=== PATIENT | male | born 1950 | race Caucasian/White ===

== ENCOUNTER 2020-11-18 16:24 | Inpatient (IN) ==
[2020-11-18] MEDS ORDERED: Heparin IV Adult Wt-Based Low-Dose WITH Bolus Protocol IV STA (16:36)
[2020-11-18] MEDS ORDERED: NITROGLYCERIN SL 0.4 MG/TAB TAB SL PRN (16:36)
[2020-11-18] MEDS ORDERED: METOPROLOL TARTRATE 1 MG/ML VIAL IV STA (16:36)
[2020-11-18 16:48] LABS: Basophils # (auto) 0.01 K/uL (0-0.2); Basophils % (auto) 0.1 %; Eosinophils # (auto) 0.04 K/uL (0-0.5); Eosinophils % (auto) 0.5 %; Hematocrit (blood only) 48.3 % (42-52); Hemoglobin 16.2 g/dL (14.0-18.0); Immature Granulocytes # (auto) 0.02 K/uL (0.00-0.02); Immature Granulocytes % (auto) 0.2 %; Lymphocytes # (auto) 1.16 K/uL (1.2-3.4); Lymphocytes % (auto) 13.9 %; Mean Corpuscular Hemoglobin 29.6 pg (25-34); Mean Corpuscular Hgb Conc 33.5 g/dL (32-36); Mean Corpuscular Volume 88.1 fL (80-100); Mean Platelet Volume 9.4 fL (7.4-10.4); Monocytes % (auto) 8.4 %; Neutrophils # (auto) 6.41 K/uL (1.4-6.5); Neutrophils % (auto) 76.9 %; Platelet Count 181 K/uL (130-400); RDW Coefficient of Variation 12.6 % (11.5-14.5); Red Blood Count 5.48 M/uL (4.7-6.1); White Blood Count 8.34 K/uL (4.8-10.8)
--- NOTE | 2020-11-18 16:56 | Emergency Department Note ---
Impression & Plan Abnormal stress echocardiogram, Chest pain due to myocardial ischemia, Chest pain ED Provider Note NAME: GLADYS WYNN AGE: 70 SEX: M : 1950 ARRIVES VIA: Ambulance INFORMANT: Patient ED PROVIDER(S): Robby Pinzon DO CHIEF COMPLAINT: Failed stress test HPI: Patient is a 68-year-old male who presents to the ER as he was seen here yesterday. He had blood work including trops and EKG. He was discharged following negative work-up for chest pain which was only present after he sat down from cutting wood. He chops wood regularly. He never gets any chest pain while chopping wood. When he eventually takes a break he will start to get this chest pain. He does not take a break because he starts to get this pain. He denies any belly pain, nausea, vomiting, or diarrhea. No dysuria, urgency, or frequency. He followed up with [facility] cardiology and they stressed him today and it was positive for likely an LAD lesion. He was referred in for further evaluation. Brother does have a history of CAD. He was brought in by EMS and given aspirin nitro. ROS: See above HPI for pertinent positives & negatives. A total of 10 systems reviewed and were otherwise negative. PAST MEDICAL HISTORY:See Below PAST SURGICAL HISTORY:See Below FAMILY HISTORY:See Below SOCIAL HISTORY:See Below HOME MEDICATIONS:See Below ALLERGIES:See Below VITALS:See Below PHYSICAL EXAMINATION: GENERAL: Sitting up in bed, alert, well appearing, well nourished, no distress, non-toxic EYE EXAM: normal conjunctiva. OROPHARYNX: no exudate, no erythema, lips, buccal mucosa, and tongue normal and mucous membranes are moist NECK: supple, no nuchal rigidity, no adenopathy, non-tender LUNGS: Clear to auscultation. Normal chest wall mechanics HEART: no murmurs, S1 normal and S2 normal ABDOMEN: abdomen soft, non-tender, normo-active bowel sounds, no masses, no rebound or guarding. BACK: Back is symmetrical on inspection and there is no deformity, no midline tenderness, no CVA tenderness. SKIN: no rashes and no bruising UPPER EXTREMITIES: upper extremities are grossly normal. LOWER EXTREMITIES: No pitting edema. NEURO EXAM: Normal sensorium, cranial nerves II-XII grossly intact, normal speech, no gross weakness of arms, no gross weakness of legs. MEDICAL DECISION MAKING: Patient is a 70-year-old male with a past medical history of hypertension presents to the ER referred in by cardiology for an abnormal stress test. He was given aspirin nitro prior to arrival. IV was established blood work was obtained. Prior to arrival discussed with Dr. Nabil Newell who recommended admission and heparin. Labs showed low significant leukocytosis or anemia. BMP with LFTs bilirubin was unremarkable. Troponin was negative. Lipase unremar kable. Covid negative. Dr. Paul and Dr. Newell did recommend a CT angio prior to starting heparin for concern for possible dissection. This was obtained and unremarkable. Following this patient was placed on heparin. Discussed with Dr. Wayne Can and patient will be admitted for likely cath tomorrow. He is pain-free. He was given a dose of Lopressor while here as his heart rate was initially in the 110s. Patient denies any previous head bleeds, coughing up blood, vomiting blood, urinating blood or dark tarry stools. No recent trauma or surgery. Discussed risk and benefits of heparin and patient was agreeable. Triage Nursing notes reviewed. Limited review of prior medical records performed Vital Signs: reviewed and remarkable for tachy Differential diagnosis: Differential diagnoses includes but is not limited to acute coronary syndrome, myocardial infarction, pericarditis, pulmonary embolus, aortic dissection, pneumonia, pneumothorax, musculoskeletal, shingles, esophageal. ER treatment provided: See below Diagnostics interpreted by me: ECG: Sinus tachycardia rate of 116 Intermittent PVCs QTC 447 Cardiac Monitoring: An order was placed for continuous cardiac monitoring. The monitor shows a rate of 105 with sinus rhythm. Laboratory studies: As stated above and show below. Imaging studies: CT Noelle of the chest shows no dissection Consultation(s): discussed with Dr. Nabil Newell and Aaron Paul from cardiology as stated above Discussed with Dr. Wayne Can for further evaluation Procedures: none Critical Care: I have personally spent 32 minutes of critical care time in the direct management of this patient. This includes bedside care, interpretation of diagnostic studies, and testing, discussion with consultants, patient, and family members, and other required patient management activities. This 32 minutes is in excess of all separately billable procedures. Past Med/Surg History Social History Smoking Status: Never smoker Tobacco Type: Smokeless Tobacco (Dip or Chew) Feels Safe at Home: Yes Allergies Allergies Allergy/AdvReac Type Severity Reaction Status Date / Time No Known Allergies Allergy Unverified 11/18/20 17:05 Home Meds Home Medications Medication Instructions Recorded Confirmed No Known Home Medications 11/17/20 11/18/20 Results & Data (ED) Vital Signs Vital Signs - 24 hr 11/18/20 16:19 11/18/20 16:28 11/18/20 16:32 Temperature 37 C Temperature Source Oral Pulse Rate 101 H 117 H 120 H Pulse Rate [Right Finger] 108 H Pulse Rate from SpO2 Sensor Pulse Rhythm Regular Pulse Rhythm [Right Finger] Regular Pulse Strength Normal Pulse Strength [Right Finger] Normal Respiratory Rate 13 20 17 Respiratory Effort / Characteristics Non-Labored Respiratory Depth Normal Respiratory Pattern Regular Blood Pressure 123/95 123/95 Blood Pressure [Right Arm] 123/95 Blood Pressure Mean 104 104 Blood Pressure Mean [Right Arm] 104 Blood Pressure Position Sitting Blood Pressure Position [Right Arm] Sitting Pulse Oximetry 95 Oxygen Delivery Method Room Air Sepsis Recent Fever Within 48 Hours No Sepsis New/Unexplained Change in Mental Status No Sepsis Action Taken by Nursing No Action Required 11/18/20 16:36 11/18/20 16:40 11/18/20 16:50 Temperature Temperature Source Pulse Rate 92 H 105 H 105 H Pulse Rate [Right Finger] Pulse Rate from SpO2 Sensor 106 H 103 H Pulse Rhythm Regular Pulse Rhythm [Right Finger] Pulse Strength Pulse Strength [Right Finger] Respiratory Rate 18 14 18 Respiratory Effort / Characteristics Respiratory Depth Respiratory Pattern Blood Pressure Blood Pressure [Right Arm] Blood Pressure Mean Blood Pressure Mean [Right Arm] Blood Pressure Position Blood Pressure Position [Right Arm] Pulse Oximetry 96 93 95 Oxygen Delivery Method Room Air Sepsis Recent Fever Within 48 Hours Sepsis New/Unexplained Change in Mental Status Sepsis Action Taken by Nursing 11/18/20 16:56 11/18/20 17:00 11/18/20 17:10 Temperature Temperature Source Pulse Rate 104 H 102 H 85 Pulse Rate [Right Finger] Pulse Rate from SpO2 Sensor 103 H 104 H 85 Pulse Rhythm Pulse Rhythm [Right Finger] Pulse Strength Pulse Strength [Right Finger] Respiratory Rate 17 19 14 Respiratory Effort / Characteristics Respiratory Depth Respiratory Pattern Blood Pressure 139/87 131/86 Blood Pressure [Right Arm] Blood Pressure Mean 104 101 Blood Pressure Mean [Right Arm] Blood Pressure Position Blood Pressure Position [Right Arm] Pulse Oximetry 94 96 95 Oxygen Delivery Method Sepsis Recent Fever Within 48 Hours Sepsis New/Unexplained Change in Mental Status Sepsis Action Taken by Nursing 11/18/20 17:20 11/18/20 17:30 11/18/20 17:40 Temperature Temperature Source Pulse Rate 81 78 71 Pulse Rate [Right Finger] Pulse Rate from SpO2 Sensor 83 72 67 Pulse Rhythm Pulse Rhythm [Right Finger] Pulse Strength Pulse Strength [Right Finger] Respiratory Rate 16 16 13 Respiratory Effort / Characteristics Respiratory Depth Respiratory Pattern Blood Pressure 124/80 Blood Pressure [Right Arm] Blood Pressure Mean 94 Blood Pressure Mean [Right Arm] Blood Pressure Position Blood Pressure Position [Right Arm] Pulse Oximetry 98 96 95 Oxygen Delivery Method Sepsis Recent Fever Within 48 Hours Sepsis New/Unexplained Change in Mental Status Sepsis Action Taken by Nursing 11/18/20 17:50 11/18/20 18:02 Temperature Temperature Source Pulse Rate 62 54 L Pulse Rate [Right Finger] Pulse Rate from SpO2 Sensor 63 53 L Pulse Rhythm Pulse Rhythm [Right Finger] Pulse Strength Pulse Strength [Right Finger] Respiratory Rate 16 19 Respiratory Effort / Characteristics Respiratory Depth Respiratory Pattern Blood Pressure 142/70 H Blood Pressure [Right Arm] Blood Pressure Mean 94 Blood Pressure Mean [Right Arm] Blood Pressure Position Blood Pressure Position [Right Arm] Pulse Oximetry 97 96 Oxygen Delivery Method Sepsis Recent Fever Within 48 Hours Sepsis New/Unexplained Change in Mental Status Sepsis Action Taken by Nursing Laboratory Data Result diagrams: 11/18/20 16:35 11/18/20 16:35 Lab Results 11/18/20 11/18/20 11/18/20 Range/Units 16:35 16:35 18:00 WBC 8.34 (4.8-10.8) K/uL RBC 5.48 (4.7-6.1) M/uL Hgb 16.2 (14.0-18.0) g/dL Hct 48.3 (42-52) % MCV 88.1 (80-100) fL MCH 29.6 (25-34) pg MCHC 33.5 (32-36) g/dL RDW Std Deviation 41.0 (36.4-46.3) fL RDW Coeff of Lilia 12.6 (11.5-14.5) % Plt Count 181 (130-400) K/uL MPV 9.4 (7.4-10.4) fL Immature Gran % (Auto) 0.2 % Neut % (Auto) 76.9 % Lymph % (Auto) 13.9 % [place] % (Auto) 8.4 % Eos % (Auto) 0.5 % Baso % (Auto) 0.1 % Neut # (Auto) 6.41 (1.4-6.5) K/uL Lymph # (Auto) 1.16 L (1.2-3.4) K/uL [place] # (Auto) 0.70 H (0.11-0.59) K/uL Eos # (Auto) 0.04 (0-0.5) K/uL Baso # (Auto) 0.01 (0-0.2) K/uL Immature Gran # (Auto) 0.02 (0.00-0.02) K/uL Sodium 136 (136-145) mmol/L Potassium 4.4 (3.5-5.1) mmol/L Chloride 104 (98-107) mmol/L Carbon Dioxide 26 (21-32) mmol/L Anion Gap 6.0 (3-11) BUN 18 (7-18) mg/dl Creatinine 1.23 (0.6-1.4) mg/dl Est Cr Clr Drug Dosing 66.5 ml/min Est GFR ( Amer) 67.6 Est GFR (Non-Af Amer) 58.3 BUN/Creatinine Ratio 14.9 (10-20) Glucose 129 H (70-99) mg/dl Calcium 9.3 (8.5-10.1) mg/dl Total Bilirubin 0.9 (0.2-1) mg/dl AST 14 L (15-37) U/L ALT 19 (12-78) U/L Alkaline Phosphatase 85 (45-117) U/L Troponin I < 0.015 (0-0.045) ng/ml Total Protein 7.3 (6.4-8.2) gm/dl Albumin 4.1 (3.4-5.0) gm/dl Globulin 3.2 (2.5-4.0) gm/dl Albumin/Globulin Ratio 1.3 (0.9-2) Lipase 86 (73-393) U/L COVID-19 Eval Order CovFluRsv at [facility] SARS-CoV-2 (PCR) (Negative) Influenza Type A (PCR) (Neg) Influenza Type B (PCR) (Neg) RSV (RT-PCR) (Neg) 11/18/20 Range/Units 18:00 WBC (4.8-10.8) K/uL RBC (4.7-6.1) M/uL Hgb (14.0-18.0) g/dL Hct (42-52) % MCV (80-100) fL MCH (25-34) pg MCHC (32-36) g/dL RDW Std Deviation (36.4-46.3) fL RDW Coeff of Lilia (11.5-14.5) % Plt Count (130-400) K/uL MPV (7.4-10.4) fL Immature Gran % (Auto) % Neut % (Auto) % Lymph % (Auto) % [place] % (Auto) % Eos % (Auto) % Baso % (Auto) % Neut # (Auto) (1.4-6.5) K/uL Lymph # (Auto) (1.2-3.4) K/uL [place] # (Auto) (0.11-0.59) K/uL Eos # (Auto) (0-0.5) K/uL Baso # (Auto) (0-0.2) K/uL Immature Gran # (Auto) (0.00-0.02) K/uL Sodium (136-145) mmol/L Potassium (3.5-5.1) mmol/L Chloride (98-107) mmol/L Carbon Dioxide (21-32) mmol/L Anion Gap (3-11) BUN (7-18) mg/dl Creatinine (0.6-1.4) mg/dl Est Cr Clr Drug Dosing ml/min Est GFR ( Amer) Est GFR (Non-Af Amer) BUN/Creatinine Ratio (10-20) Glucose (70-99) mg/dl Calcium (8.5-10.1) mg/dl Total Bilirubin (0.2-1) mg/dl AST (15-37) U/L ALT (12-78) U/L Alkaline Phosphatase (45-117) U/L Troponin I (0-0.045) ng/ml Total Protein (6.4-8.2) gm/dl Albumin (3.4-5.0) gm/dl Globulin (2.5-4.0) gm/dl Albumin/Globulin Ratio (0.9-2) Lipase (73-393) U/L COVID-19 Eval Order SARS-CoV-2 (PCR) NEGATIVE (Negative) Influenza Type A (PCR) Negative (Neg) Influenza Type B (PCR) Negative (Neg) RSV (RT-PCR) Negative (Neg) Administered Medications Discontinued Medications Ioversol (Optiray 320 125ml) 119 ml IV ONCE ONE Stop: 11/18/20 18:13 Last Admin: 11/18/20 18:13 Dose: 119 ml Documented by: [id number] Metoprolol Tartrate (Metoprolol Tartrate 1 Mg/Ml Vial) 2.5 mg IV NOW STA Stop: 11/18/20 16:37 Last Admin: 11/18/20 16:59 Dose: 2.5 mg Documented by: [id number] Discharge Plan Visit Data Chief Complaint: Chest Pain ED Provider: Robby Pinzon Discharge Problem: Abnormal stress echocardiogram, Chest pain due to myocardial ischemia, Chest pain Forms Stand Alone Forms: [employer] Prescriptions Prescriptions: No Action No Known Home Medications RF: 0 Discharge Problem: Chest pain due to myocardial ischemia Qualifiers: Ischemic chest pain type: unspecified angina pectoris type Qualified Code(s): I 25.9 - Chronic ischemic heart disease, unspecified Chest pain Qualifiers: Chest pain type: unspecified Qualified Code(s): R07.9 - Chest pain, unspecified
[2020-11-18 17:04] LABS: Alanine Aminotransferase 19 U/L (12-78); Albumin Level 4.1 gm/dl (3.4-5.0); Aspartate Aminotransferase 14 U/L (15-37); BUN Creatinine Ratio 14.9 (10-20); Blood Urea Nitrogen 18 mg/dl (7-18); Calcium 9.3 mg/dl (8.5-10.1); Carbon Dioxide 26 mmol/L (21-32); Chloride 104 mmol/L (98-107); Creatinine Clr Calc Pharmacy 66.5 ml/min; Est GFR (African American) 67.6; Est GFR (Non-African American) 58.3; Glucose 129 mg/dl (70-99); Lipase 86 U/L (73-393); Potassium 4.4 mmol/L (3.5-5.1); Sodium 136 mmol/L (136-145)
[2020-11-18 17:09] LABS: Albumin Globulin Ratio 1.3 (0.9-2); Alkaline Phosphatase 85 U/L (45-117); Bilirubin,Total 0.9 mg/dl (0.2-1); Globulin 3.2 gm/dl (2.5-4.0); Total Protein 7.3 gm/dl (6.4-8.2); Troponin I < 0.015 ng/ml (0-0.045)
--- NOTE | 2020-11-18 18:04 | Cardiology Consultation ---
Date of Consultation November 18, 2020 Assessment & Plan (1) Abnormal stress echocardiogram: The patient will be made n.p.o. after midnight and undergo a cardiac catheterization in the morning. I have explained the risk, benefit and intent of the procedure to him and is willing to proceed. (2) Chest pain due to myocardial ischemia: Currently pain-free. If his CT of the chest is negative then consideration should be given to starting him on IV heparin. He should be started on a beta-leyla and aspirin. (3) Aortic dissection: The echocardiogram suggested a dilatation of his aortic root with some aortic insufficiency. The patient will have a CAT scan of the chest to rule out aortic dissection or thoracic aneurysm. (4) Hypertension: Treat hypertension as needed. History of Present Illness History of Present Illness This is a 70-year-old male patient who was seen by Dr. Rinaldi at our clinic today. On Tuesday he presented with chest pain that he described as substernal and woke him from sleep. He was evaluated in the ER and then sent for follow-up at our clinic. The patient reported intermittent chest pain for the past 3 weeks especially post exercise and resolving with rest. The patient has no prior history of heart disease. He does have a history of hypertension and was noted to be hypertensive in the ER. He has no prior history of diabetes but does have a history of dyslipidemia. His brother has had open heart surgery. Dr. Rinaldi proceeded with an exercise stress echocardiogram today that was abnormal suggesting ischemia in the LAD distribution. His symptoms were reproduced during the study and required sublingual nitroglycerin for relief. He was transported by EMS to the emergency department. Of note is that in addition to the wall motion abnormalities in the LAD distribution he also had an abnormality of his aortic root with mild enlargement and aortic insufficiency. In the emergency department he is symptom-free. Allergies Allergy/AdvReac Type Severity Reaction Status Date / Time No Known Allergies Allergy Unverified 11/18/20 17:05 Home Medications Medication Instructions Recorded Confirmed Type No Known Home Medications 11/17/20 11/18/20 History Patient History Medical History (Updated 11/18/20 @ 23:38 by Lizett Conn DO) Hypertension Family History (Updated 11/18/20 @ 23:38 by Lizett Conn DO) Other Coronary heart disease Social History Smoking Status: Former smoker Tobacco Type: Smokeless Tobacco (Dip or Chew) Smoking End Date: 35-40 years ago; Hx Alcohol Use: Yes Alcohol type: beer Hx Substance Use: Yes Preferred Language: [place]an Communication Ability: Effective Artificial Flowers [place] Required: No Beliefs That Will Affect Care: None Current Living Situation: Spouse Other Information That Helps Us Care for You: No Feels Safe at Home: Yes Safety Concerns: Feels Safe At This Time Assistive Devices: None Review of Systems Review of Systems: All systems reviewed & are unremarkable except as noted in HPI & below Nothing additional to add. Physical Exam Physical Exam: General: no acute distress and stated age Head: normocephalic, no masses, lesions, tenderness or abnormalities Eyes: conjunctiva are pink and non-injected, sclera clear Neck: supple, no adenopathy, no bruits, normal jugular venous pulse, no hepatojugular reflux Chest: normal shape and normal respiratory effort Lungs: clear to auscultation and percussion Cardiac Exam: - regular rate & rhythm, no murmurs gallops or rubs - normal S1, normal S2 Pulses: 2(+) throughout Abdomen: abdomen soft, non-tender, no abnormal masses and no hepatosplenomegaly Musculoskeletal: no gait disturbance, no joint inflammation, no deforming arthritis Extremities: no edema and no cyanosis Neuro: grossly normal exam Results & Data ([facility]) Vital Signs (Past 12 Hours) Vital Signs Temp Pulse Pulse Resp BP BP Pulse Ox 11/18/20 17:30 78 16 124/80 96 11/18/20 17:20 81 16 98 11/18/20 17:10 85 14 95 11/18/20 17:00 102 H 19 131/86 96 11/18/20 16:56 104 H 17 139/87 94 11/18/20 16:50 105 H 18 95 11/18/20 16:40 105 H 14 93 11/18/20 16:36 92 H 18 96 11/18/20 16:32 120 H 17 11/18/20 16:28 117 H 20 123/95 11/18/20 16:19 37 C 101 H 108 H 13 123/95 123/95 95 Laboratory Results Laboratory Results - last 24 hr 11/18/20 11/18/20 16:35 16:35 WBC 8.34 RBC 5.48 Hgb 16.2 Hct 48.3 MCV 88.1 MCH 29.6 MCHC 33.5 RDW Std Deviation 41.0 RDW Coeff of Lilia 12.6 Plt Count 181 MPV 9.4 Immature Gran % (Auto) 0.2 Neut % (Auto) 76.9 Lymph % (Auto) 13.9 [place] % (Auto) 8.4 Eos % (Auto) 0.5 Baso % (Auto) 0.1 Neut # (Auto) 6.41 Lymph # (Auto) 1.16 L [place] # (Auto) 0.70 H Eos # (Auto) 0.04 Baso # (Auto) 0.01 Immature Gran # (Auto) 0.02 Sodium 136 Potassium 4.4 Chloride 104 Carbon Dioxide 26 Anion Gap 6.0 BUN 18 Creatinine 1.23 Est Cr Clr Drug Dosing 66.5 Est GFR ( Amer) 67.6 Est GFR (Non-Af Amer) 58.3 BUN/Creatinine Ratio 14.9 Glucose 129 H Calcium 9.3 Total Bilirubin 0.9 AST 14 L ALT 19 Alkaline Phosphatase 85 Troponin I < 0.015 Total Protein 7.3 Albumin 4.1 Globulin 3.2 Albumin/Globulin Ratio 1.3 Lipase 86 Diagnostic Findings EKG shows a normal sinus rhythm without acute changes. Cardiac markers x1 are negative. Medications Administered Medications No Known Home Medications 11/17/20 [History Confirmed 11/17/20] Home Medications Heparin Sodium/Dextrose (Heparin Sodium/Dextrose) 25,000 units in 500 mls @ 0.02 mls/hr IV .Q24H [facility]; Protocol Stop: 12/18/20 16:44 Nitroglycerin (Nitroglycerin Sl 0.4 Mg/Tab Tab) 0.4 mg SL PRN PRN PRN Reason: chest pain Stop: 12/18/20 16:35
[2020-11-18] MEDS ORDERED: OPTIRAY 320 125ml IV ONE (18:12)
[2020-11-18 19:01] LABS: Influenza A virus by PCR Negative (Neg); Influenza B virus by PCR Negative (Neg); RSV by PCR Negative (Neg); SARS CoV2 RNA(COVID-19) InHosp NEGATIVE (Negative)
--- NOTE | 2020-11-18 19:03 | CT Scan Report ---
CHEST CTA for AORTIC DISSECTION CT DOSE: 1086.18 mGy.cm HISTORY: Abnormal ascending aorta on echocardiogram. Assess for dissection. TECHNIQUE: Multiaxial CT images of the chest were performed both before and after the intravenous adm inistration of contrast to evaluate the aorta. Maximal intensity projection images were also obtained . A dose lowering technique was utilized adhering to the principles of ALARA. COMPARISON STUDY: None. FINDINGS: Noncontrast imaging through the chest shows no evidence for an intramural hematoma within t he thoracic aorta. There is a 2.8 cm splenic cyst. The visualized liver and adrenal glands are unrema rkable. The aortic root measures up to 3.7 cm in diameter. The ascending thoracic aorta measured at t he main pulmonary artery also measures up to 3.7 cm in diameter. Moderate calcified plaque within the coronary arteries. The heart is borderline enlarged. No pleural or pericardial effusions. Normal eso phagus. No mediastinal or hilar lymphadenopathy. No suspicious lytic or blastic osseous lesions. No p neumothorax. The central airways are patent. There is a punctate calcified granuloma within the right middle lobe. No focal lung consolidations to suggest pneumonia. IMPRESSION: 1. No evidence for an aortic dissection. 2. 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 ACT 112: Negative or not required by law. Electronically signed by: Rancho Sanchez M.D. 11/18/2020 7:02 PM
[2020-11-18] MEDS ORDERED: Heparin BOLUS **ED Use Only IV STA (19:32)
[2020-11-18] MEDS: HEPARIN SODIUM/DEXTROSE 25,000 UNITS/500 ML BAG IV SCH (19:51)
--- NOTE | 2020-11-18 20:11 | History & Physical Report ---
Date of Service November 18, 2020 Assessment & Plan (1) Chest pain: Patient is a 70 year old male with no PMHx who presented after undergoing a stress echocardiogram with abnormality suggesting ischemia in the LAD distribution. Chest pain and Abnormal Stress Echocardiogram -Positive stress echo in outpatient cardiology clinic today with suggestions of ischemia in the LAD distribution -Troponin at time of admission <0.015 -Cardiology consulted -Planning for cardiac catheterization in the morning -Started on heparin gtt -Started on ASA 81mg -Start metoprolol tartrate 12.5mg BID -PRN Nitroglycerin SL for chest pain Concern for Aortic Dissection -Chest CTA negative for dissection Dispo: Med/Surg Telemetry for continuous monitoring and plans for cardiac catheterization in the AM. FEN: HH diet, NPO after midnight, LR 80ml/hr x1L after midnight DVT: Heparin gtt Code: Full (2) Abnormal stress echocardiogram: (3) Chest pain due to myocardial ischemia: (4) Hypertension: History of Present Illness Chief Complaint: Chest pain, Abnormal Echo Primary Care Provider: LAILA Noble Patient is a 70 year old male with no PMHx who presented after undergoing a str ess echocardiogram with abnormality suggesting ischemia in the LAD distribution. Patient notes that he initially had pain 3 days ago (upon chart review it seems this had been occurring for the past 3 weeks) which began as a tightness in his chest at night which persisted into the following morning. He states that the pain initially started as a sharp sensation L to his sternum at nipple line and developed into a sternal and substernal tightness. He was evaluated in the ED and further referred to Cardiology for evaluation. Undergoing an exercise stress echocardiogram today there were abnormalities suggesting ischemia in the LAD distribution. He also had reproduction of his pain requiring sublingual nitroglycerin for relief. Plan was discussed with patient and he was sent to the ED by EMS with plans for cardiac catheterization on 11/19/20. Also of note, patient had mild enlargement of his aortic root seen on the echo. CTA of patient's chest was negative aortic dissection. Currently patient is seated in the room denying chest pain, SOB, chest pressure, headache, dizziness, abdominal pain, fever, chills. Med Hx: HTN Surg Hx: None Soc: Quit smoking 30 years ago, 20 pack year. Drinks 6 pack of beer weekly. No illicit drug use. Allergies Allergy/AdvReac Type Severity Reaction Status Date / Time No Known Allergies Allergy Unverified 11/18/20 17:05 Home Medications Medication Instructions Recorded Confirmed Type No Known Home Medications 11/17/20 11/18/20 History Past Med/Surg History Medical History (Updated 11/18/20 @ 23:38 by Lizett Conn DO) Hypertension Family History (Updated 11/18/20 @ 23:38 by Lizett Conn DO) Other Coronary heart disease Social History Smoking Status: Former smoker Tobacco Type: Smokeless Tobacco (Dip or Chew) Smoking End Date: 35-40 years ago; Hx Alcohol Use: Yes Alcohol type: beer Hx Substance Use: Yes Preferred Language: [place] Islander Communication Ability: Effective Acting Professor Required: No Beliefs That Will Affect Care: None Current Living Situation: Spouse Other Information That Helps Us Care for You: No Feels Safe at Home: Yes Safety Concerns: Feels Safe At This Time Assistive Devices: Glasses Review of Systems Review of Systems: All systems reviewed & are unremarkable except as noted in Subjective Physical Exam Constitutional: WD/WN, vitals as above Eyes: PERRL, conjunctivae normal, anicteric sclerae ENMT: external ear and nose normal, oropharynx normal Neck: trachea midline, no thyromegaly Respiratory: normal respiratory effort, lungs clear to auscultation Cardiovascular: RRR, no murmur, no edema Gastrointestinal (Abdomen): normal bowel sounds, soft, nontender, no hepatosplenomegaly Musculoskeletal: no cyanosis or clubbing, extremities motor strength 5/5 Neurologic: PERRL, EOMI, accommodation nl, no face palsy, no dysarthria Psychiatric: A+Ox3, euthymic affect Results & Data Results & Data ([facility]) Vital Signs (Past 12 Hours) Vital Signs Temp Pulse Pulse Resp BP BP Pulse Ox 11/18/20 18:02 54 L 19 142/70 H 96 11/18/20 17:50 62 16 97 11/18/20 17:40 71 13 95 11/18/20 17:30 78 16 124/80 96 11/18/20 17:20 81 16 98 11/18/20 17:10 85 14 95 11/18/20 17:00 102 H 19 131/86 96 11/18/20 16:56 104 H 17 139/87 94 11/18/20 16:50 105 H 18 95 11/18/20 16:40 105 H 14 93 11/18/20 16:36 92 H 18 96 11/18/20 16:32 120 H 17 11/18/20 16:28 117 H 20 123/95 11/18/20 16:19 37 C 101 H 108 H 13 123/95 123/95 95 Laboratory Results Lab Results 11/18/20 11/18/20 11/18/20 Range/Units 16:35 16:35 18:00 WBC 8.34 (4.8-10.8) K/uL RBC 5.48 (4.7-6.1) M/uL Hgb 16.2 (14.0-18.0) g/dL Hct 48.3 (42-52) % MCV 88.1 (80-100) fL MCH 29.6 (25-34) pg MCHC 33.5 (32-36) g/dL RDW Std Deviation 41.0 (36.4-46.3) fL RDW Coeff of Lilia 12.6 (11.5-14.5) % Plt Count 181 (130-400) K/uL MPV 9.4 (7.4-10.4) fL Immature Gran % (Auto) 0.2 % Neut % (Auto) 76.9 % Lymph % (Auto) 13.9 % Fisher % (Auto) 8.4 % Eos % (Auto) 0.5 % Baso % (Auto) 0.1 % Neut # (Auto) 6.41 (1.4-6.5) K/uL Lymph # (Auto) 1.16 L (1.2-3.4) K/uL Fisher # (Auto) 0.70 H (0.11-0.59) K/uL Eos # (Auto) 0.04 (0-0.5) K/uL Baso # (Auto) 0.01 (0-0.2) K/uL Immature Gran # (Auto) 0.02 (0.00-0.02) K/uL Sodium 136 (136-145) mmol/L Potassium 4.4 (3.5-5.1) mmol/L Chloride 104 (98-107) mmol/L Carbon Dioxide 26 (21-32) mmol/L Anion Gap 6.0 (3-11) BUN 18 (7-18) mg/dl Creatinine 1.23 (0.6-1.4) mg/dl Est Cr Clr Drug Dosing 66.5 ml/min Est GFR ( Amer) 67.6 Est GFR (Non-Af Amer) 58.3 BUN/Creatinine Ratio 14.9 (10-20) Glucose 129 H (70-99) mg/dl Calcium 9.3 (8.5-10.1) mg/dl Total Bilirubin 0.9 (0.2-1) mg/dl AST 14 L (15-37) U/L ALT 19 (12-78) U/L Alkaline Phosphatase 85 (45-117) U/L Troponin I < 0.015 (0-0.045) ng/ml Total Protein 7.3 (6.4-8.2) gm/dl Albumin 4.1 (3.4-5.0) gm/dl Globulin 3.2 (2.5-4.0) gm/dl Albumin/Globulin Ratio 1.3 (0.9-2) Lipase 86 (73-393) U/L COVID-19 Eval Order CovFluRsv at [facility] SARS-CoV-2 (PCR) (Negative) Influenza Type A (PCR) (Neg) Influenza Type B (PCR) (Neg) RSV (RT-PCR) (Neg) 11/18/20 Range/Units 18:00 WBC (4.8-10.8) K/uL RBC (4.7-6.1) M/uL Hgb (14.0-18.0) g/dL Hct (42-52) % MCV (80-100) fL MCH (25-34) pg MCHC (32-36) g/dL RDW Std Deviation (36.4-46.3) fL RDW Coeff of Lilia (11.5-14.5) % Plt Count (130-400) K/uL MPV (7.4-10.4) fL Immature Gran % (Auto) % Neut % (Auto) % Lymph % (Auto) % Fisher % (Auto) % Eos % (Auto) % Baso % (Auto) % Neut # (Auto) (1.4-6.5) K/uL Lymph # (Auto) (1.2-3.4) K/uL Fisher # (Auto) (0.11-0.59) K/uL Eos # (Auto) (0-0.5) K/uL Baso # (Auto) (0-0.2) K/uL Immature Gran # (Auto) (0.00-0.02) K/uL Sodium (136-145) mmol/L Potassium (3.5-5.1) mmol/L Chloride (98-107) mmol/L Carbon Dioxide (21-32) mmol/L Anion Gap (3-11) BUN (7-18) mg/dl Creatinine (0.6-1.4) mg/dl Est Cr Clr Drug Dosing ml/min Est GFR ( Amer) Est GFR (Non-Af Amer) BUN/Creatinine Ratio (10-20) Glucose (70-99) mg/dl Calcium (8.5-10.1) mg/dl Total Bilirubin (0.2-1) mg/dl AST (15-37) U/L ALT (12-78) U/L Alkaline Phosphatase (45-117) U/L Troponin I (0-0.045) ng/ml Total Protein (6.4-8.2) gm/dl Albumin (3.4-5.0) gm/dl Globulin (2.5-4.0) gm/dl Albumin/Globulin Ratio (0.9-2) Lipase (73-393) U/L COVID-19 Eval Order SARS-CoV-2 (PCR) NEGATIVE (Negative) Influenza Type A (PCR) Negative (Neg) Influenza Type B (PCR) Negative (Neg) RSV (RT-PCR) Negative (Neg) Diagnostic Findings CHEST CTA for AORTIC DISSECTION CT DOSE: 1086.18 mGy.cm HISTORY: Abnormal ascending aorta on echocardiogram. Assess for dissection. TECHNIQUE: Multiaxial CT images of the chest were performed both before and after the intravenous administration of contrast to evaluate the aorta. Maximal intensity projection images were also obtained. A dose lowering technique was utilized adhering to the principles of ALARA. COMPARISON STUDY: None. FINDINGS: Noncontrast imaging through the chest shows no evidence for an intramural hematoma within the thoracic aorta. There is a 2.8 cm splenic cyst. The visualized liver and adrenal glands are unremarkable. The aortic root measures up to 3.7 cm in diameter. The ascending thoracic aorta measured at the main pulmonary artery also measures up to 3.7 cm in diameter. Moderate calcified plaque within the coronary arteries. The heart is borderline enlarged. No pleural or pericardial effusions. Normal esophagus. No mediastinal or hilar lymphadenopathy. No suspicious lytic or blastic osseous lesions. No pneumothorax. The central airways are patent. There is a punctate calcified granuloma within the right middle lobe. No focal lung consolidations to suggest pneumonia. IMPRESSION: 1. No evidence for an aortic dissection. 2. 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 ACT 112: Negative or not required by law. Electronically signed by: Rancho Sanchez M.D. 11/18/2020 7:02 PM Dictated: 11/18/[id number]: 11/18/201856 Supervising Physician Co-Signing Physician Notes Patient seen and examined, chart reviewed, case discussed with Dr. Forman and I agree with his assessment and plan as documented above. Briefly, patient is a 70yo male presenting with chest discomfort - intermittent, post-exertional for the last 3 weeks. He had an abnormal exercise stress echocardiogram today in Cardiology office therefore was sent to [facility] for cardiac catheterization tomorrow 11/19/20. Presently with no complaints. No CP On exam he is afebrile, mildly hypertensive at 142/70 Skin - intact HEENT - NC/AT, PERRL, Neck supple, No JVD Heart - +S1/S2, regular, no m/r/g Lungs - CTA Abd - +BS, soft, NT/ND Ext- No edema Neuro -Non focal Labs and images reviewed. Troponin = <0.015 Electrolytes WNL EKG wtih ST at 116, fusion beats noted, ST deviation in , aVR Assessment/Plan: -Heparin gtt -Initiate Metoprolol 12.5mg BID, titrate as tolerated -ASA 81mg po daily -Plan for Cardiac catheterization in AM Resident Activity Tracking Resident Involvement: Resident Care Provided Care Provided: Adult Hospital Medicine (1) Chest pain due to myocardial ischemia Ischemic chest pain type: unspecified angina pectoris type Qualified Code(s): I25.9 - Chronic ischemic heart disease, unspecified (2) Chest pain Chest pain type: unspecified Qualified Code(s): R07.9 - Chest pain, unspecified
[2020-11-18] MEDS ORDERED: METOPROLOL TARTRATE 25 MG TAB PO SCH (20:50)
[2020-11-18] MEDS: METOPROLOL TARTRATE 25 MG TAB PO SCH (21:42)
[2020-11-18] MEDS: ASPIRIN 81 MG ECTAB PO SCH (21:42)
--- NOTE | 2020-11-18 23:48 | Billing Data ---
Date of Service November 18, 2020 Coding Level of Care Code 37501 Initial Inpt Care Lvl 2
[2020-11-19 03:08] LABS: Partial Thromboplastin Ratio 1.8
[2020-11-19 03:10] LABS: Partial Thromboplastin Time 46.9 Seconds (21.0-31.0)
[2020-11-19 06:00] LABS: Basophils # (auto) 0.01 K/uL (0-0.2); Basophils % (auto) 0.1 %; Eosinophils # (auto) 0.12 K/uL (0-0.5); Eosinophils % (auto) 1.7 %; Hematocrit (blood only) 42.9 % (42-52); Hemoglobin 14.5 g/dL (14.0-18.0); Immature Granulocytes # (auto) 0.02 K/uL (0.00-0.02); Immature Granulocytes % (auto) 0.3 %; Lymphocytes % (auto) 27.7 %; Mean Corpuscular Hemoglobin 29.8 pg (25-34); Mean Corpuscular Hgb Conc 33.8 g/dL (32-36); Mean Corpuscular Volume 88.3 fL (80-100); Mean Platelet Volume 9.2 fL (7.4-10.4); Monocytes # (auto) 0.96 K/uL (0.11-0.59); Monocytes % (auto) 13.3 %; Neutrophils % (auto) 56.9 %; Platelet Count 151 K/uL (130-400); RDW Coefficient of Variation 12.8 % (11.5-14.5); Red Blood Count 4.86 M/uL (4.7-6.1); White Blood Count 7.21 K/uL (4.8-10.8)
[2020-11-19 06:18] LABS: Partial Thromboplastin Ratio 1.6; Partial Thromboplastin Time 42.4 Seconds (21.0-31.0)
[2020-11-19 06:34] LABS: BUN Creatinine Ratio 18.3 (10-20); Calcium 8.1 mg/dl (8.5-10.1); Creatinine Clr Calc Pharmacy 73.3 ml/min; Est GFR (African American) 80.9; Est GFR (Non-African American) 69.8; Magnesium 2.3 mg/dl (1.8-2.4); Potassium 3.9 mmol/L (3.5-5.1)
[2020-11-19] MEDS: ASPIRIN 81 MG ECTAB PO SCH (07:35)
[2020-11-19] MEDS: METOPROLOL TARTRATE 25 MG TAB PO SCH (07:35)
--- NOTE | 2020-11-19 10:55 | Cardiology Progress Note ---
Date of Service November 19, 2020 Assessment & Plan (1) Abnormal stress echocardiogram: The patient is to have a cardiac catheterization this morning. As mentioned above he did have some chest pain this morning relieved with sublingual nitroglycerin. (2) Chest pain due to myocardial ischemia: Plan cardiac catheterization this morning. (3) Aortic dissection: CT of the chest revealed mild dilatation of the ascending aorta and no dissection. (4) Hypertension: Treat hypertension as needed. Admission and Anticipated Discharge Date Admission Date: November 18, 2020 Subjective The patient had chest pain this morning relieved with 1 sublingual nitroglycerin. EKG obtained by nursing shows no acute changes. Review of Systems Review of Systems: All systems reviewed & are unremarkable except as noted in Subjective Physical Exam Physical Exam: General: no acute distress and stated age Head: normocephalic, no masses, lesions, tenderness or abnormalities Eyes: conjunctiva are pink and non-injected, sclera clear Neck: supple, no adenopathy, no bruits, normal jugular venous pulse, no hepatojugular reflux Chest: normal shape and normal respiratory effort Lungs: clear to auscultation and percussion Cardiac Exam: - regular rate & rhythm, no murmurs gallops or rubs - normal S1, normal S2 Pulses: 2(+) throughout Abdomen: abdomen soft, non-tender, no abnormal masses and no hepatosplenomegaly Musculoskeletal: no gait disturbance, no joint inflammation, no deforming art hritis Extremities: no edema and no cyanosis Neuro: grossly normal exam Results & Data ([facility]) Vital Signs (Past 12 Hours) Vital Signs Temp Pulse Pulse Resp BP BP Pulse Ox 11/19/20 08:52 59 L 11/19/20 07:38 37.1 C 72 16 142/80 H 96 11/19/20 03:41 36.8 C 58 L 16 135/78 96 11/18/20 23:56 36.7 C 54 L 16 135/78 96 Laboratory Results Laboratory Results - last 24 hr 11/18/20 11/18/20 11/18/20 16:35 16:35 18:00 WBC 8.34 RBC 5.48 Hgb 16.2 Hct 48.3 MCV 88.1 MCH 29.6 MCHC 33.5 RDW Std Deviation 41.0 RDW Coeff of Lilia 12.6 Plt Count 181 MPV 9.4 Immature Gran % (Auto) 0.2 Neut % (Auto) 76.9 Lymph % (Auto) 13.9 [place] % (Auto) 8.4 Eos % (Auto) 0.5 Baso % (Auto) 0.1 Neut # (Auto) 6.41 Lymph # (Auto) 1.16 L [place] # (Auto) 0.70 H Eos # (Auto) 0.04 Baso # (Auto) 0.01 Immature Gran # (Auto) 0.02 APTT PTT Ratio Sodium 136 Potassium 4.4 Chloride 104 Carbon Dioxide 26 Anion Gap 6.0 BUN 18 Creatinine 1.23 Est Cr Clr Drug Dosing 66.5 Est GFR ( Amer) 67.6 Est GFR (Non-Af Amer) 58.3 BUN/Creatinine Ratio 14.9 Glucose 129 H Calcium 9.3 Phosphorus Magnesium Total Bilirubin 0.9 AST 14 L ALT 19 Alkaline Phosphatase 85 Troponin I < 0.015 Total Protein 7.3 Albumin 4.1 Globulin 3.2 Albumin/Globulin Ratio 1.3 Lipase 86 COVID-19 Eval Order CovFluRsv at [facility] SARS-CoV-2 (PCR) Influenza Type A (PCR) Influenza Type B (PCR) RSV (RT-PCR) 11/18/20 11/19/20 11/19/20 18:00 02:13 05:49 WBC 7.21 RBC 4.86 Hgb 14.5 Hct 42.9 MCV 88.3 MCH 29.8 MCHC 33.8 RDW Std Deviation 41.0 RDW Coeff of Lilia 12.8 Plt Count 151 MPV 9.2 Immature Gran % (Auto) 0.3 Neut % (Auto) 56.9 Lymph % (Auto) 27.7 [place] % (Auto) 13.3 Eos % (Auto) 1.7 Baso % (Auto) 0.1 Neut # (Auto) 4.10 Lymph # (Auto) 2.00 [place] # (Auto) 0.96 H Eos # (Auto) 0.12 Baso # (Auto) 0.01 Immature Gran # (Auto) 0.02 APTT 46.9 H* PTT Ratio 1.8 Sodium Potassium Chloride Carbon Dioxide Anion Gap BUN Creatinine Est Cr Clr Drug Dosing Est GFR ( Amer) Est GFR (Non-Af Amer) BUN/Creatinine Ratio Glucose Calcium Phosphorus Magnesium Total Bilirubin AST ALT Alkaline Phosphatase Troponin I Total Protein Albumin Globulin Albumin/Globulin Ratio Lipase COVID-19 Eval Order SARS-CoV-2 (PCR) NEGATIVE Influenza Type A (PCR) Negative Influenza Type B (PCR) Negative RSV (RT-PCR) Negative 11/19/20 11/19/20 05:49 05:49 WBC RBC Hgb Hct MCV MCH MCHC RDW Std Deviation RDW Coeff of Lilia Plt Count MPV Immature Gran % (Auto) Neut % (Auto) Lymph % (Auto) [place] % (Auto) Eos % (Auto) Baso % (Auto) Neut # (Auto) Lymph # (Auto) [place] # (Auto) Eos # (Auto) Baso # (Auto) Immature Gran # (Auto) APTT 42.4 H PTT Ratio 1.6 Sodium 139 Potassium 3.9 Chloride 108 H Carbon Dioxide 28 Anion Gap 3.0 BUN 19 H Creatinine 1.06 Est Cr Clr Drug Dosing 73.3 Est GFR ( Amer) 80.9 Est GFR (Non-Af Amer) 69.8 BUN/Creatinine Ratio 18.3 Glucose 93 Calcium 8.1 L Phosphorus 3.0 Magnesium 2.3 Total Bilirubin AST ALT Alkaline Phosphatase Troponin I Total Protein Albumin Globulin Albumin/Globulin Ratio Lipase COVID-19 Eval Order SARS-CoV-2 (PCR) Influenza Type A (PCR) Influenza Type B (PCR) RSV (RT-PCR) Diagnostic Findings EKG completed this morning indicates normal sinus rhythm and is actually within normal limits. Medications Administered Current Inpatient Medications Aspirin (Aspirin 81 Mg Ectab) 81 mg PO QAM [facility] Stop: 12/18/20 20:49 Last Admin: 11/19/20 07:35 Dose: 81 mg Documented by: Heparin Sodium/Dextrose (Heparin Sodium/Dextrose) 25,000 units in 500 mls @ 22 mls/hr IV .[id number] [facility]; Protocol Stop: 12/18/20 16:44 Last Titration: 11/19/20 06:21 Dose: 1,100 units/hr, 22 mls/hr Documented by: Sodium Chloride (Nss 1000ml) 1,000 mls @ 80 mls/hr IV .[id number] [facility] Stop: 12/19/20 11:59 Metoprolol Tartrate (Metoprolol Tartrate 25 Mg Tab) 12.5 mg PO BID [facility] Stop: 12/18/20 20:59 Last Admin: 11/19/20 07:35 Dose: Not Given Documented by: Nitroglycerin (Nitroglycerin Sl 0.4 Mg/Tab Tab) 0.4 mg SL PRN PRN PRN Reason: chest pain Stop: 12/18/20 16:35 Last Admin: 11/19/20 10:38 Dose: 0.4 mg Documented by: (1) Chest pain due to myocardial ischemia Ischemic chest pain type: unspecified angina pectoris type Qualified Code(s): I25.9 - Chronic ischemic heart disease, unspecified
[2020-11-19] MEDS ORDERED: SODIUM CHLORIDE 0.9% 1000ML 1,000 ML IV SCH (12:00)
[2020-11-19] MEDS ORDERED: HEPARIN (PORCINE) 1000 UNIT/ML 10 ML (CATH LAB USE ONLY) ONE (13:16)
[2020-11-19] MEDS ORDERED: niCARdipine HCL INJ 2.5 MG/ML 10 ML AMP ONE (13:16)
[2020-11-19] MEDS ORDERED: MIDAZOLAM HCL 1 MG/ML 2ML VIAL ONE (13:17)
[2020-11-19] MEDS ORDERED: NITROGLYCERIN/D5W 100MCG/ML 20ML SYR ONE (13:17)
[2020-11-19] MEDS ORDERED: fentaNYL citrate 100 MCG/2 ML VIAL ONE (13:17)
[2020-11-19 13:18] LABS: Partial Thromboplastin Ratio 1.5; Partial Thromboplastin Time 38.3 Seconds (21.0-31.0)
--- NOTE | 2020-11-19 13:49 | Hospitalist Progress Note ---
Date of Service November 19, 2020 Assessment & Plan (1) Chest pain: He appears to have crescendo angina. He currently is on a heparin drip, aspirin therapy, beta-leyla therapy. He is awaiting left heart catheterization later today, November 19. Use sublingual nitroglycerin as needed for any recurrent chest discomfort. Cardiology consultation appreciated (2) Abnormal stress echocardiogram: High likelihood of underlying critical coronary artery disease. Medication management for now. Heparin infusion. Cardiology consultation appreciated. Left heart catheterization later today, November 19 (3) Chest pain due to myocardial ischemia: As above (4) Hypertension: Currently on metoprolol. Will follow DVT prophylaxis: Currently on heparin infusion Disposition: Eventual discharge to home Admission and Anticipated Discharge Date Admission Date: November 18, 2020 Subjective RoundAlert and oriented at the time of my this morning. He did have some recurrent chest discomfort this morning relieved with sublingual nitroglycerin. He is awaiting left heart catheterization today. He remains on a heparin drip, aspirin, beta-leyla therapy Review of Systems Review of Systems: All systems reviewed & are unremarkable except as noted in HPI & below Physical Exam Physical Exam: General-alert and oriented x3, no fevers, no chills HEENT-head atraumatic and normocephalic, TMs intact bilaterally, pupils equal and reactive to light, extraocular muscles intact Neck-no lymphadenopathy or thyromegaly, trachea midline Chest-clear to auscultation percussion. No rales wheezing or rhonchi Cardiac-regular rate and rhythm, normal S1 and S2, no murmurs Abdomen-normal bowel sounds, nontender, no hepatosplenomegaly Extremities-no cyanosis, clubbing, or edema Neuro-cranial nerves II through XII intact, motor and sensory function within normal limits, strength symmetrical 5/5, no focal deficits Psych-normal affect, normal mood Results & Data Results & Data ([facility]) Vital Signs (Past 12 Hours) Vital Signs Temp Pulse Pulse Resp BP BP Pulse Ox 11/19/20 11:15 37.2 C 67 16 138/69 92 11/19/20 08:52 59 L 11/19/20 07:38 37.1 C 72 16 142/80 H 96 11/19/20 03:41 36.8 C 58 L 16 135/78 96 Laboratory Results 11/19/20 05:49 03/31/21 05:49 PG Care Time/CCT Total # of Minutes Spent Total Time Spent with Patient: Total time spent is greater than 50% in coordination of care (as documented) at patient's floor/unit and/or counseling patient: Coding Level of Care Code 62246 Subseq Hosp Care Lvl 3 Diagnoses Chest pain R07.9 Chest pain type: unspecified Abnormal stress echocardiogram R94.39 Chest pain due to myocardial ischemia I25.9 Ischemic chest pain type: unspecified angina pectoris type Hypertension I10 (1) Chest pain Chest pain type: unspecified Qualified Code(s): R07.9 - Chest pain, unspecified (2) Chest pain due to myocardial ischemia Ischemic chest pain type: unspecified angina pectoris type Qualified Code(s): I25.9 - Chronic ischemic heart disease, unspecified
--- NOTE | 2020-11-19 14:32 | Electrocardiogram Report ---
Test Reason : Blood Pressure : / mmHG Vent. Rate : 116 BPM Atrial Rate : 116 BPM P-R Int : 144 ms QRS Dur : 070 ms QT Int : 322 ms P-R-T Axes : 061 -48 040 degrees QTc Int : 447 ms Poor data quality, interpretation may be adversely affected Sinus tachycardia with Fusion complexes Possible Left atrial enlargement Left axis deviation Abnormal ECG When compared with ECG of 17-NOV-2020 15:07, Fusion complexes are now Present Vent. rate has increased BY 38 BPM Confirmed by Zackary Molina ([id number]) on 11/19/2020 2:31:47 PM Referred By: Alexandr Newell Confirmed By:Zackary Molina
--- NOTE | 2020-11-19 14:45 | Electrocardiogram Report ---
Test Reason : Blood Pressure : / mmHG Vent. Rate : 089 BPM Atrial Rate : 089 BPM P-R Int : 146 ms QRS Dur : 074 ms QT Int : 376 ms P-R-T Axes : 075 -36 023 degrees QTc Int : 457 ms Normal sinus rhythm Left axis deviation Abnormal ECG When compared with ECG of 18-NOV-2020 16:30, (unconfirmed) Fusion complexes are no longer Present Confirmed by Zackary Molina ([id number]) on 11/19/2020 2:45:19 PM Referred By: Alexandr Newell Confirmed By:Zackary Molina
--- NOTE | 2020-11-19 14:49 | Cardiac Catheterization ---
Date of Service November 19, 2020 Cardiac Cath Report Cardiac Cath Report Procedure: 1. Left heart catheterization 2. Coronary angiography 3. Left ventriculogram History: This is a 70-year-old male patient who had an abnormal exercise stress test and was referred for admission and cardiac catheterization. Procedure summary: After informed consent was obtained the patient was brought to the cardiac catheterization lab. A Barbeau maneuver was performed on the right wrist with poor flow through the ulnar artery and therefore he was prepped and draped for a right transfemoral approach. Preformed 5 [place] diagnostic catheters were utilized for the coronary angiograms. A 5 [place] pigtail catheter was utilized for the left heart pressures and left ventriculogram. Following the procedure the arterial site was closed with a minx device. Patient was then returned to his room in stable condition. ACC data: Start time 1352 End time 1425 Opening aortic pressure 130/69 Closing aortic pressure 134/61 Left ventricular pressure 133/3 Sedation 1 mg intravenous Versed IV fluids 75 cc normal saline Contrast 145 cc Optiray Fluoroscopy time 9.4 minutes Radiation 1807 mGy DAP 146.63 cGy/m Right dominant system AUC score 9 Coronary angiography: Selective injections in the left coronary artery revealed the left main trunk to be patent. The proximal LAD is calcified and diffusely diseased with a long 80% stenoses. In the mid section of the LAD there is a subtotal stenosis with the remainder the artery progressing around the apex of the heart. There is a large ramus branch from the left main trunk which bifurcates into 2 large equal segments. Prior to that bifurcation there is a subtotaled stenosis. The left circumflex consists mainly of a medium sized marginal branch supplying the posterior lateral myocardium. This marginal branch bifurcates and before that bifurcation there is a subtotal stenosis. Selective injections of the right coronary artery reveal it to be diffusely diseased. The right coronary artery is dominant.. It has an angled takeoff. The right coronary artery supplies collaterals to the distal LAD. There is also a subtotal stenosis in the proximal PDA. Left ventriculogram: The left ventricle is of normal size with normal systolic function. The mitral valve is competent. The aortic root and ascending aorta have normal morphology and diameter. Summary: The patient has significant three-vessel coronary artery disease as described above. Normal LV function. He is best treated with open heart surgery and coronary artery bypass. We will have the surgeons from [facility] review the case. Recommendations: He is best treated with open heart surgery and coronary artery bypass. We will have the surgeons from [facility] review the case.
--- NOTE | 2020-11-19 15:02 | Post Anesthesia Assessment ---
Date of Service November 19, 2020 Post Sedation Assessment Vital Signs Temp Pulse Pulse Pulse Resp BP BP 11/19/20 14:45 71 18 142/80 H 11/19/20 14:35 73 18 171/90 H 11/19/20 11:15 37.2 C 67 16 138/69 11/19/20 08:52 59 L 11/19/20 07:38 37.1 C 72 16 142/80 H 11/19/20 03:41 36.8 C 58 L 16 11/18/20 23:56 36.7 C 54 L 16 11/18/20 22:20 60 11/18/20 21:40 51 L 11/18/20 20:52 60 11/18/20 20:50 37.1 C 62 18 169/89 H 11/18/20 20:26 56 L 18 141/82 H 11/18/20 18:02 54 L 19 142/70 H 11/18/20 17:50 62 16 11/18/20 17:40 71 13 11/18/20 17:30 78 16 124/80 11/18/20 17:20 81 16 11/18/20 17:10 85 14 11/18/20 17:00 102 H 19 131/86 11/18/20 16:56 104 H 17 139/87 11/18/20 16:50 105 H 18 11/18/20 16:40 105 H 14 11/18/20 16:36 92 H 18 11/18/20 16:32 120 H 17 11/18/20 16:28 117 H 20 123/95 11/18/20 16:19 37 C 101 H 108 H 13 123/95 BP Pulse Ox 11/19/20 14:45 95 11/19/20 14:35 97 11/19/20 11:15 92 11/19/20 08:52 11/19/20 07:38 96 11/19/20 03:41 135/78 96 11/18/20 23:56 135/78 96 11/18/20 22:20 11/18/20 21:40 11/18/20 20:52 11/18/20 20:50 97 11/18/20 20:26 96 11/18/20 18:02 96 11/18/20 17:50 97 11/18/20 17:40 95 11/18/20 17:30 96 11/18/20 17:20 98 11/18/20 17:10 95 11/18/20 17:00 96 11/18/20 16:56 94 11/18/20 16:50 95 11/18/20 16:40 93 11/18/20 16:36 96 11/18/20 16:32 11/18/20 16:28 11/18/20 16:19 123/95 95 Recovery Score Activity: Moves 4 extremities Respiration: Deep Breath/Cough Circulation: +/-20% PreAnes Value Consciousness: Fully Awake Oxygen Saturation: > 92% On Room Air Post Anesthesia Score: 10 Discharge Sedation Level of Care: Phase I Post Sedation Plan On clinical assessment, the patient appears to have tolerated the sedation without complications. Patient is recovering as anticipated. Patient will continue to be monitored by nursing and may be discharged when sedation discharge criteria are met per below protocol. Upon Completions of procedure up to 15 minutes continue every 5 minute vital signs and the P.A.R. score; then discharge to a Phase I or Fast Track to Phase II per the following guidelines: * Discharge Patient to appropriate Phase II area if PAR is 8 or greater or return to pre- procedure baseline. The post - procedure orders will be as directed. * If PAR score is less than 8 or not return to pre-procedure baseline then patient will follow Phase I monitoring till PAR is reached for Phase II. The Phase I may be done in procedure room or may call to secure a Phase I area. * If naloxone or flumazenil are used for reversal, hold in Phase I for continued monitoring from when last reversal dose was given for a minimum of 60 minutes or longer pending the nurse and/or physician discretion of patient condition before discharge to Phase II. Please call the Sedation Physician to re-evaluate and complete post-note for discharge to Phase II area. Do NOT discharge from procedure sedation or Phase 1 until post- sedation evaluation note is complete by procedure /sedation MD Sedation Discharge Instructions to be given to the patient at discharge to home.
[2020-11-19] MEDS: HEPARIN SODIUM/DEXTROSE 25,000 UNITS/500 ML BAG IV SCH (18:23)
[2020-11-19 19:51] LABS: Partial Thromboplastin Time 27.5 Seconds (21.0-31.0)
--- NOTE | 2020-12-18 14:22 | Discharge Summary ---
Date of Service December 18, 2020 Admission HPI Per Admitting Provider Patient is a 70 year old male with no PMHx who presented after undergoing a stress echocardiogram with abnormality suggesting ischemia in the LAD distribution. Patient notes that he initially had pain 3 days ago (upon chart review it seems this had been occurring for the past 3 weeks) which began as a tightness in his chest at night which persisted into the following morning. He states that the pain initially started as a sharp sensation L to his sternum at nipple line and developed into a sternal and substernal tightness. He was evaluated in the ED and further referred to Cardiology for evaluation. Undergoing an exercise stress echocardiogram today there were abnormalities suggesting ischemia in the LAD distribution. He also had reproduction of his pain requiring sublingual nitroglycerin for relief. Plan was discussed with patient and he was sent to the ED by EMS with plans for cardiac catheterization on 11/19/20. Also of note, patient had mild enlargement of his aortic root seen on the echo. CTA of patient's chest was negative aortic dissection. Currently patient is seated in the room denying chest pain, SOB, chest pressure, headache, dizziness, abdominal pain, fever, chills. Med Hx: HTN Surg Hx: None Soc: Quit smoking 30 years ago, 20 pack year. Drinks 6 pack of beer weekly. No illicit drug use. Principal Diagnosis Unstable angina Discharge Data Allergies Allergy/AdvReac Type Severity Reaction Status Date / Time No Known Allergies Allergy Unverified 12/08/20 12:59 Consultations 11/18/20 16:40 ED Decision to Admit Stat 11/18/20 20:50 Consult Cardiology Routine Procedures Performed Operation Date: 11/19/20 11:00 Actual Procedures p Cath, Left with Cors and Vent - Gildardo Paul DO s Cineradiography w/Routine Exam - Gildardo Paul DO Ordered Studies 11/18/20 17:41 CT angio chest dissec wo/w con Stat 11/19/20 13:04 CL Cath Imgs for PACS use only Stat Hospital Course (1) Unstable angina: (1) Chest pain: He appears to have unstable crescendo angina. He currently is on a heparin drip, aspirin therapy, beta-leyla therapy. Left heart cath was completed today, November 19. He has severe triple-vessel coronary artery disease and will be transferred to [facility] for coronary artery bypass grafting. Use sublingual nitroglycerin as needed for any recurrent chest discomfort. Cardiology consultation appreciated (2) Abnormal stress echocardiogram: Critical coronary artery disease found on heart catheterization. Medication management for now. Heparin infusion. Cardiology consultation appreciated. Left heart catheterization completed today, November 19 (3) Chest pain due to myocardial ischemia: As above (4) Hypertension: Currently on metoprolol. Will follow DVT prophylaxis: Currently on heparin infusion Disposition: Transfer to [facility] for coronary artery bypass grafting Total Time Total Time Spent Total Time Spent (In Minutes): 35 minutes Total Time Includes: Examination of the Patient, Discharge Planning, Medication Reconciliation and Communication With Other Providers Discharge Plan Discharge Items Patient Disposition: Transfer Acute Care Hospital Reason For Visit: CHEST PAIN, ABNORMAL STRESS ECHO Discharge Diagnosis: triple vessel CAD, crescendo angina Activity: As commented below Activity Comment: bedrest with BRP Non-emergency contact: Primary Care Provider Call non-emergency contact if: you have any medication questions Follow-up/Referrals: Lita Pierre CRNP [Primary Care Provider] - Diet: Heart Healthy Addtl Attending Provider Instructions: transfer to [facility] for open heart surgery Pending Studies at Discharge: No Stand-Alone Forms: [employer] Skilled Items Patient informed of condition?: Yes DNR: No Discharge Level of Care: Other Communicable Disease: No Discharge Prognosis: Stable Lines: Peripheral IV Urinary Catheter: No Medications and DC Order Prescriptions: No Action amiodarone 200 mg tablet 200 mg PO DAILY Qty: 30 RF: 2 furosemide 40 mg tablet 40 mg PO DAILY Qty: 30 RF: 2 atorvastatin 80 mg tablet 80 mg PO DAILY Qty: 30 RF: 2 potassium chloride 10 mEq capsule, extended release 10 meq PO DAILY Qty: 30 RF: 2 clopidogrel 75 mg tablet 75 mg PO DAILY Qty: 30 RF: 2 famotidine 20 mg tablet 20 mg PO DAILY Qty: 30 RF: 2 oxycodone 5 mg capsule 5 mg PO Q4H PRN (Reason: pain) Qty: 20 RF: 0 docusate sodium 100 mg capsule 100 mg PO BID Qty: 60 RF: 0 aspirin 81 mg tablet,chewable 81 mg PO DAILY Qty: 30 RF: 2 metoprolol tartrate 25 mg tablet 12.5 mg PO Q12H Qty: 30 RF: 2 senna 8.6 mg capsule 8.6 mg PO BID Qty: 60 RF: 0 Katie-Rul Vitamins tablet 1 tab PO DAILY Qty: 30 RF: 0 Discharge Orders: Discharge Order (Routine); Ordered 11/19/20 Ordered By: Lopez Champagne Admission Data Admit Date/Time: 11/18/20 20:01 Attending Provider: Lopez Champagne Admit Provider: Alexandr Forman Primary Care Provider: Lita Pierre Other Providers: Gildardo Paul Other Interventions: Discharge Summary Assessment (RN) Last Done: 11/19/20 20:02 Coding Level of Care Code D/C Day Management >30 mins Diagnoses Unstable angina I20.0
== END 2020-11-19 19:45 | disposition short-term general hospital (02) | DRG 287 ==
LOC: ED 16:24 → SUATTDRO 20:01 → 2N 20:01 → 2S 11-19 15:42

== ENCOUNTER 2021-02-14 11:49 | Observation (INO) ==
[2021-02-14] MEDS ORDERED: SODIUM CHLORIDE 0.9% 500 ML IV STA (12:23)
--- NOTE | 2021-02-14 12:35 | Emergency Department Note ---
Impression & Plan Near syncope, Chest pain ED Provider Note NAME: GLADYS WYNN AGE: 70 SEX: M : 1950 ARRIVES VIA: Walk-In INFORMANT: Patient, ED PROVIDER(S): Zackary Gee DO CHIEF COMPLAINT: Near syncope HPI: The patient is a 70-year-old male who presented to the emergency department for an evaluation of near syncope. The patient had an episode yesterday while he was mowing grass where he felt "uneasy". He states he does not feel at his baseline health. He states he has been having episodes of epigastric pain that goes into his chest. He denies having any back pain. He denies having any black or bloody bowel movements. He has no other abdominal pain. He states he does have left-sided chest pain but it is continuous ever since he had coronary artery bypass grafting. He denies having any fever or cough. He denies having any difficulty breathing. He does admit that he is had a headache ever since the surgery in October but this is not the main reason he came to the emergency department. He did call his primary mandolin repair person today and the on-call mandolin repair person told him to come the emergency department for an evaluation. He does not take any blood thinners currently. He states otherwise he has been compliant with all of his outpatient medication regimen. He denies having any recent trauma. He states he felt as though he was going to pass out when this episode occurred yesterday. ROS: See above HPI for pertinent positives & negatives. A total of 10 systems reviewed and were otherwise negative. PAST MEDICAL HISTORY: See Below PAST SURGICAL HISTORY: See Below FAMILY HISTORY: See Below SOCIAL HISTORY: See Below HOME MEDICATIONS: See Below ALLERGIES: See Below VITALS: See Below PHYSICAL EXAMINATION: GENERAL: Patient is awake alert in no acute distress patient is resting comfort ably and showing no signs of anxiety EYES: The conjunctivae are clear. The pupils are round and reactive. EARS, NOSE, MOUTH AND THROAT: The nose is without any evidence of any deformity. NECK: The neck is nontender and supple. RESPIRATORY: Normal respiratory effort is noted there is no evidence of wheezing rhonchi or rales CARDIOVASCULAR: Regular rate and rhythm noted there no murmurs rubs or gallops normal S1 normal S2. GASTROINTESTINAL: The abdomen is soft. Abdomen is nontender. MUSCULOSKELETAL/EXTREMITIES: There is no evidence of gross deformity full range of motion is noted in the hips and shoulders. SKIN: No significant pedal edema was noted. NEUROLOGIC: Patient is awake alert and oriented x3 strength is symmetric patellar reflexes are 2+ bilaterally MEDICAL DECISION MAKING: The patient is a 70-year-old male who presented to the emergency department for an evaluation after having a near syncopal episode. The patient's near syncopal episode occurred while he was mildly exerting himself although he did not feel that he was exerting himself very much. The patient has no symptoms at this time but still does not feel at his baseline. The patient did not have any EKG changes compared to previous and his cardiac biomarker was negative. He did recently have a change in his beta-leyla but he did not have any dysrhythmia in the emergency department. I discussed the patient's laboratory and radiographic studies with him. Given his risk factors I also discussed his case with the on-call [facility]. They have agreed to evaluate the patient in the emergency department for further management and disposition. Triage Nursing notes reviewed. Prior medical records reviewed Vital Signs: reviewed and remarkable for bradycardia and elevated blood pressure. Differential diagnosis: Vasovagal event, dehydration, infection, hypoglycemia, electrolyte abnormalities, cardiac sources, intracerebral event, pulmonary embolism, seizure, toxicologic, neurologic, as well as other pathologies. ER treatment provided: See below Diagnostics interpreted by me: ECG: EKG was obtained in the emergency department. My interpretation is sinus rhythm at 66 bpm. There was no ectopy. There was no acute ST segment abnormalities noted. This was compared to a tracing from November 19, 2020. No significant changes were noted. Cardiac Monitoring: An order was placed for continuous cardiac monitoring. The monitor shows a rate of 60 bpm with sinus rhythm. Laboratory studies: As stated above and show below. Imaging studies: See below Consultation(s): I discussed this case with Dr. Pham who is on-call for the [facility]. Past Med/Surg History Medical History Abnormal stress echocardiogram Atrial fibrillation CAD (coronary artery disease) Chest pain due to myocardial ischemia Hypertension Postoperative anemia due to acute blood loss Thrombocytopenia Unstable angina Surgical History S/P CABG (coronary artery bypass graft) at [facility] 11/19/20 Family History Mother Myocardial infarction Other Coronary heart disease Denies family history of Ovarian cancer Prostate cancer Diabetes Breast cancer Colorectal cancer Hypertension Social History Smoking Status: Former smoker Tobacco Type: Smokeless Tobacco (Dip or Chew) Second Hand Exposure: No; Hx Alcohol Use: Yes Alcohol type: beer Hx Substance Use: Yes Preferred Language: Macedonian Communication 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 Beliefs That Will Affect Care: None marital status: Current Living Situation: Spouse current occupational status: retired Feels Safe at Home: Yes caffeine: Yes (coffee) Dental Care, Regularly: Yes Physical Activity Frequency: 5-6 Times per Week Seatbelt Use: always Sunscreen Use: No Assistive Devices: None Allergies Allergies Allergy/AdvReac Type Severity Reaction Status Date / Time No Known Allergies Allergy Unverified 02/14/21 12:55 Home Meds Home Medications Medication Instructions Recorded Confirmed amiodarone 200 mg PO QAM 02/14/21 02/14/21 aspirin 81 mg PO QAM 02/14/21 02/14/21 atorvastatin 80 mg PO HS 02/14/21 02/14/21 clopidogrel 75 mg PO QAM 02/14/21 02/14/21 docusate sodium [Stool Softener] 100 mg PO HS PRN 02/14/21 02/14/21 ezetimibe [Zetia] 10 mg PO QAM 02/14/21 02/14/21 losartan [Cozaar] 25 mg PO QAM 02/14/21 02/14/21 metoprolol succinate [Toprol XL] 25 mg PO QAM 02/14/21 02/14/21 Results & Data (ED) Vital Signs Vital Signs - 24 hr 02/14/21 11:52 02/14/21 12:29 02/14/21 13:32 Temperature 36.6 C Temperature Source Temporal Artery Scan Pulse Rate 78 Pulse Rate [Apical] 59 L Respiratory Rate 18 20 Blood Pressure 198/98 H Blood Pressure [Left Arm] 152/80 H Blood Pressure Mean 131 Blood Pressure Mean [Left Arm] 104 Blood Pressure Position Sitting Blood Pressure Position [Left Arm] Sitting Pulse Oximetry 98 98 97 Oxygen Delivery Method Room Air Room Air Room Air Sepsis Recent Fever Within 48 Hours No Sepsis New/Unexplained Change in Mental Status No Sepsis Action Taken by Nursing No Action Required Home Medications Current Medication List: was personally reviewed by me Laboratory Data Attestation: I reviewed the patient's lab results. Result diagrams: 02/14/21 12:16 02/14/21 13:41 Lab Results 02/14/21 02/14/21 02/14/21 Range/Units 12:16 12:16 12:16 WBC 7.22 (4.8-10.8) K/uL RBC 5.06 (4.7-6.1) M/uL Hgb 14.3 (14.0-18.0) g/dL Hct 43.5 (42-52) % MCV 86.0 (80-100) fL MCH 28.3 (25-34) pg MCHC 32.9 (32-36) g/dL RDW Std Deviation 45.9 (36.4-46.3) fL RDW Coeff of Lilia 14.6 H (11.5-14.5) % Plt Count 157 (130-400) K/uL MPV 9.5 (7.4-10.4) fL Immature Gran % (Auto) 0.1 % Neut % (Auto) 79.1 % Lymph % (Auto) 12.2 % [place] % (Auto) 8.2 % Eos % (Auto) 0.3 % Baso % (Auto) 0.1 % Neut # (Auto) 5.71 (1.4-6.5) K/uL Lymph # (Auto) 0.88 L (1.2-3.4) K/uL [place] # (Auto) 0.59 (0.11-0.59) K/uL Eos # (Auto) 0.02 (0-0.5) K/uL Baso # (Auto) 0.01 (0-0.2) K/uL Immature Gran # (Auto) 0.01 (0.00-0.02) K/uL PT 10.2 (9.0-12.0) Seconds INR 1.0 (0.9-1.1) APTT 26.0 (21.0-31.0) Seconds PTT Ratio 1.0 Sodium 138 (136-145) mmol/L Potassium (3.5-5.1) mmol/L Chloride 108 H (98-107) mmol/L Carbon Dioxide 22 (21-32) mmol/L Anion Gap 7.0 (3-11) BUN 19 H (7-18) mg/dl Creatinine 1.09 (0.6-1.4) mg/dl Est Cr Clr Drug Dosing 71.1 ml/min Est GFR ( Amer) 78.2 ml/min Est GFR (Non-Af Amer) 67.5 ml/min BUN/Creatinine Ratio 17.4 (10-20) Glucose 112 H (70-99) mg/dl Calcium 8.9 (8.5-10.1) mg/dl Total Bilirubin 0.7 (0.2-1) mg/dl AST (15-37) U/L ALT 39 (12-78) U/L Alkaline Phosphatase 93 (45-117) U/L Troponin I < 0.015 (0-0.045) ng/ml Total Protein 7.3 (6.4-8.2) gm/dl Albumin 4.0 (3.4-5.0) gm/dl Globulin 3.3 (2.5-4.0) gm/dl Albumin/Globulin Ratio 1.2 (0.9-2) Lipase 73 (73-393) U/L 02/14/21 Range/Units 13:41 WBC (4.8-10.8) K/uL RBC (4.7-6.1) M/uL Hgb (14.0-18.0) g/dL Hct (42-52) % MCV (80-100) fL MCH (25-34) pg MCHC (32-36) g/dL RDW Std Deviation (36.4-46.3) fL RDW Coeff of Lilia (11.5-14.5) % Plt Count (130-400) K/uL MPV (7.4-10.4) fL Immature Gran % (Auto) % Neut % (Auto) % Lymph % (Auto) % [place] % (Auto) % Eos % (Auto) % Baso % (Auto) % Neut # (Auto) (1.4-6.5) K/uL Lymph # (Auto) (1.2-3.4) K/uL [place] # (Auto) (0.11-0.59) K/uL Eos # (Auto) (0-0.5) K/uL Baso # (Auto) (0-0.2) K/uL Immature Gran # (Auto) (0.00-0.02) K/uL PT (9.0-12.0) Seconds INR (0.9-1.1) APTT (21.0-31.0) Seconds PTT Ratio Sodium (136-145) mmol/L Potassium 4.2 (3.5-5.1) mmol/L Chloride (98-107) mmol/L Carbon Dioxide (21-32) mmol/L Anion Gap (3-11) BUN (7-18) mg/dl Creatinine (0.6-1.4) mg/dl Est Cr Clr Drug Dosing ml/min Est GFR ( Amer) ml/min Est GFR (Non-Af Amer) ml/min BUN/Creatinine Ratio (10-20) Glucose (70-99) mg/dl Calcium (8.5-10.1) mg/dl Total Bilirubin (0.2-1) mg/dl AST 16 (15-37) U/L ALT (12-78) U/L Alkaline Phosphatase (45-117) U/L Troponin I (0-0.045) ng/ml Total Protein (6.4-8.2) gm/dl Albumin (3.4-5.0) gm/dl Globulin (2.5-4.0) gm/dl Albumin/Globulin Ratio (0.9-2) Lipase (73-393) U/L Administered Medications Discontinued Medications Sodium Chloride (Nss) 500 mls @ 999 mls/hr IV .Q31M STA Stop: 02/14/21 12:53 Last Infusion: 02/14/21 13:24 Dose: 0 mls/hr Documented by: [id number] Admin: 02/14/21 12:35 Dose: 999 mls/hr Documented by: [id number] Imaging Data Radiologist's Impression: Chest X-Ray 02/14/21 12:23 XR chest 1V portable CLINICAL HISTORY: Atypical chest pain COMPARISON STUDY: 11/17/2020 FINDINGS: There are postsurgical changes of a midline sternotomy. The heart is at the upper limits of normal in size. There is no failure. There is no focal pulmonary consolidation. There are no pleural effusions. Densities at the level left cardiophrenic angle, are likely secondary to a fat pad.[ IMPRESSION: No active disease in the chest. ACT 112: Negative or not required by law. Electronically signed by: Vasyl Callahan M.D. 02/14/2021 12:[address] 02/14/21 12:25 CT head/brain wo con CLINICAL HISTORY: Nausea, lightheadedness, headache, near syncope COMPARISON STUDY: No previous studies for comparison. TECHNIQUE: Axial CT of the brain is performed from the vertex to the skull base. IV contrast was not administered for this examination. A dose lowering technique was utilized adhering to the principles of ALARA. CT DOSE: 614.27 mGy.cm FINDINGS: No intra or extra-axial mass lesions are visualized. There is no CT evidence of acute cortical infarction. There is no evidence of midline shift. There is no acute hemorrhage. No calvarial fractures are visualized. There are minor white matter hypodensities likely on a small vessel basis. There is no evidence of pathologic ventricular dilatation. There is no evidence of acute sinusitis IMPRESSION: No acute intracranial findings ACT 112: Negative or not required by law. Electronically signed by: Vasyl Callahan M.D. 02/14/2021 12:51 PM Discharge Plan Visit Data Chief Complaint: Cardiac Assessment Stated Complaint: NAUSEA & DIZZINESS ED Provider: Zackary Gee Discharge Problem: Near syncope, Chest pain Patient Disposition: Being Evaluated by Hospitalist Condition: Good Forms Stand Alone Forms: [facility] Prescriptions Prescriptions: No Action losartan [Cozaar] 25 mg tablet 25 mg PO QAM RF: 0 docusate sodium [Stool Softener] 100 mg Capsule 100 mg PO HS PRN (Reason: Constipation) RF: 0 metoprolol succinate [Toprol XL] 25 mg tablet extended release 24 hr 25 mg PO QAM RF: 0 ezetimibe [Zetia] 10 mg tablet 10 mg PO QAM RF: 0 atorvastatin 80 mg tablet 80 mg PO HS RF: 0 amiodarone 200 mg tablet 200 mg PO QAM RF: 0 clopidogrel 75 mg tablet 75 mg PO QAM RF: 0 aspirin 81 mg tablet,chewable 81 mg PO QAM RF: 0 Referrals Referrals: Lita Pierre CRNP [Primary Care Provider] - Discharge Problem: Chest pain Qualifiers: Chest pain type: unspecified Qualified Code(s): R07.9 - Chest pain, unspecified
[2021-02-14 12:39] LABS: Basophils # (auto) 0.01 K/uL (0-0.2); Basophils % (auto) 0.1 %; Eosinophils # (auto) 0.02 K/uL (0-0.5); Eosinophils % (auto) 0.3 %; Hematocrit (blood only) 43.5 % (42-52); Hemoglobin 14.3 g/dL (14.0-18.0); Immature Granulocytes # (auto) 0.01 K/uL (0.00-0.02); Immature Granulocytes % (auto) 0.1 %; Lymphocytes # (auto) 0.88 K/uL (1.2-3.4); Lymphocytes % (auto) 12.2 %; Mean Corpuscular Hemoglobin 28.3 pg (25-34); Mean Corpuscular Hgb Conc 32.9 g/dL (32-36); Mean Platelet Volume 9.5 fL (7.4-10.4); Monocytes # (auto) 0.59 K/uL (0.11-0.59); Monocytes % (auto) 8.2 %; Neutrophils # (auto) 5.71 K/uL (1.4-6.5); Neutrophils % (auto) 79.1 %; Platelet Count 157 K/uL (130-400); RDW Coefficient of Variation 14.6 % (11.5-14.5); RDW Standard Deviation 45.9 fL (36.4-46.3); Red Blood Count 5.06 M/uL (4.7-6.1); White Blood Count 7.22 K/uL (4.8-10.8)
[2021-02-14 12:50] LABS: Prothrombin Time 10.2 Seconds (9.0-12.0)
--- NOTE | 2021-02-14 12:53 | CT Scan Report ---
CT head/brain wo con CLINICAL HISTORY: Nausea, lightheadedness, headache, near syncope COMPARISON STUDY: No previous studies for comparison. TECHNIQUE: Axial CT of the brain is performed from the vertex to the skull base. IV contrast was not administered for this examination. A dose lowering technique was utilized adhering to the principles of ALARA. CT DOSE: 614.27 mGy.cm FINDINGS: No intra or extra-axial mass lesions are visualized. There is no CT evidence of acute cortical infarc tion. There is no evidence of midline shift. There is no acute hemorrhage. No calvarial fractures ar e visualized. There are minor white matter hypodensities likely on a small vessel basis. There is no evidence of pathologic ventricular dilatation. There is no evidence of acute sinusitis IMPRESSION: No acute intracranial findings ACT 112: Negative or not required by law. Electronically signed by: aVsyl Callahan M.D. 02/14/2021 12:51 PM
[2021-02-14 13:14] LABS: Alanine Aminotransferase 39 U/L (12-78); Calcium 8.9 mg/dl (8.5-10.1); Chloride 108 mmol/L (98-107); Creatinine Clr Calc Pharmacy 71.1 ml/min; Est GFR (African American) 78.2 ml/min; Est GFR (Non-African American) 67.5 ml/min; Glucose 112 mg/dl (70-99); Sodium 138 mmol/L (136-145)
[2021-02-14 13:17] LABS: Albumin Globulin Ratio 1.2 (0.9-2); Alkaline Phosphatase 93 U/L (45-117); Bilirubin,Total 0.7 mg/dl (0.2-1); Globulin 3.3 gm/dl (2.5-4.0); Total Protein 7.3 gm/dl (6.4-8.2)
[2021-02-14 13:29] LABS: BUN Creatinine Ratio 17.4 (10-20); Blood Urea Nitrogen 19 mg/dl (7-18); Carbon Dioxide 22 mmol/L (21-32)
[2021-02-14 13:32] LABS: Lipase 73 U/L (73-393)
[2021-02-14 13:37] LABS: Troponin I < 0.015 ng/ml (0-0.045)
[2021-02-14 14:11] LABS: Potassium 4.2 mmol/L (3.5-5.1)
--- NOTE | 2021-02-14 15:17 | History & Physical Report ---
Date of Service February 14, 2021 Assessment & Plan (1) Near syncope: Presents with 12 hours of intermittent brief episodes of nausea without vomiting, and on sensation of queasiness in the epigastric region radiating up through the chest. This is also associated with lightheadedness but no syncope. No associated palpitations or chest pain, no abdominal pain, no evidence of GI bleeding. ECG with sinus bradycardia. Recent change to metoprolol succinate but is the same dose as he was taking of the tartrate. He is mildly hypertensive here and does not seem volume depleted -Bring in on observation to telemetry unit for arrhythmia monitoring -Given radiation of symptoms up through his chest, will trend serial troponin -Check orthostatic vital signs -Perhaps is vasovagal in nature due to GI cause as below -consult Cardiology (2) Nausea: Could be gastritis secondary to aspirin use although no evidence of GI bleeding and hemoglobin is normal -Add on Protonix 40 mg p.o. once daily to see if improves symptoms -Check RUQ US other LFTs normal, lipase normal -Zofran as needed (3) Epigastric pain: Not as early pain, but with queasy sensation and nausea as above Checking right upper quadrant ultrasound (4) CAD (coronary artery disease): Status post CABG Continue aspirin, Plavix, atorvastatin, Zetia, metoprolol, losartan Ruling out ACS as above (5) Atrial fibrillation: With a history of paroxysmal atrial fibrillation postoperatively from his CABG Was supposed to have a Zio patch placed as per cardiology notes Amiodarone is to be discontinued on 02/19 -Continue amiodarone for now He is not on anticoagulation at this time (6) Hypertension: Blood pressure is mildly elevated here Continue home losartan, Toprol-XL (7) Dyslipidemia: Continue statin, Zetia (8) DVT prophylaxis: Lovenox SQ Disposition bring in on observation to telemetry unit, if rules out for ACS and improved, can discharge to home tomorrow Full code, patient does not desire long-term life support if in a vegetative state as per his wishes. Discussed his care with at the bedside. History of Present Illness Chief Complaint: Lightheadedness, upper abdominal discomfort Primary Care Provider: LAILA Noble This patient is a 70-year-old male with a history of CAD status post four-vessel CABG with SUAREZ to LAD, SVG to ramus, OM, PDA on 11/20/2020 with postoperative course complicated by paroxysmal atrial fibrillation and left sided postsurgical pneumothorax, HTN, dyslipidemia, who presents to the ER with lightheadedness as well as episodes of nausea and epigastric discomfort. He feels he overdid it with activity yesterday as he mowed the grass with a riding lawnmower after which he felt "uneasy" and lightheaded with minimal exertion. Started having episodes of epigastric discomfort which he describes was not a pain but more just nausea that radiated up into his chest, lasting 15 seconds at a time. But denies any back pain, no black or bloody bowel movements, no other abdominal pain. No nausea or vomiting. He reports that changes in position did not make it come on or make it go away and that he did not take anything for it. He has never had any GI issues in the past and has never had an EGD for any reason. He has been taking aspirin daily since his CABG 3 months ago. Denies shortness of breath, fevers, or cough. He reports having intermittent headache also since the CABG but did not have any yesterday.he denies any chest pain. He called his automotive power electronics engineer this morning with his symptoms who recommended he come to the ER for an evaluation. Apparently, his metoprolol was recently changed on January 21 from metoprolol tartrate 12.5 mg p.o. twice daily to metoprolol succinate 25 mg once daily. He also had losartan 25 mg daily added on at that same visit with cardiology. In the ER, CBC and CMP were normal, troponin was negative, LFTs and lipase were normal. CT the head was negative for acute findings, chest x-ray negative for acute findings but shows postsurgical changes of midline sternotomy and density at the level of the left cardiophrenic angle secondary to fat pad. ECG with sinus rhythm with sinus arrhythmia, left axis deviation, no acute ischemic changes. He was mildly hypertensive, had sinus bradycardia, and vital signs were otherwise normal. He will be admitted for further work-up for cardiac evaluation and further work- up for his lightheadedness and nausea. Allergies Allergy/AdvReac Type Severity Reaction Status Date / Time No Known Allergies Allergy Unverified 02/14/21 12:55 Home Medications Medication Instructions Recorded Confirmed Type amiodarone 200 mg PO QAM 02/14/21 02/14/21 History aspirin 81 mg PO QAM 02/14/21 02/14/21 History atorvastatin 80 mg PO HS 02/14/21 02/14/21 History clopidogrel 75 mg PO QAM 02/14/21 02/14/21 History docusate sodium [Stool Softener] 100 mg PO HS PRN 02/14/21 02/14/21 History ezetimibe [Zetia] 10 mg PO QAM 02/14/21 02/14/21 History losartan [Cozaar] 25 mg PO QAM 02/14/21 02/14/21 History metoprolol succinate [Toprol XL] 25 mg PO QAM 02/14/21 02/14/21 History Past Med/Surg History Medical History (Updated 02/14/21 @ 16:40 by Arelis Pham MD) Abnormal stress echocardiogram Atrial fibrillation CAD (coronary artery disease) Chest pain due to myocardial ischemia Dyslipidemia Hypertension Postoperative anemia due to acute blood loss Thrombocytopenia Unstable angina Surgical History S/P CABG (coronary artery bypass graft) at [facility] 11/19/20 Family History Mother Myocardial infarction Other Coronary heart disease Denies family history of Ovarian cancer Prostate cancer Diabetes Breast cancer Colorectal cancer Hypertension Social History (Updated 02/14/21 @ 16:37 by Arelis Pham MD) Smoking Status: Former smoker Tobacco Type: Cigarettes and Smokeless Tobacco (Dip or Chew) Age Quit Using Tobacco: 28; Second Hand Exposure: No; Hx Alcohol Use: Yes Alcohol type: beer Alcohol Intake Frequency: 2-3 x/Week Preferred Language: Lebanese Communication Ability: Effective Social Media Coordinator Required: No Beliefs That Will Affect Care: None marital status: Current Living Situation: Spouse current occupational status: retired Feels Safe at Home: Yes caffeine: Yes (coffee) Dental Care, Regularly: Yes Physical Activity Frequency: 5-6 Times per Week Seatbelt Use: always Sunscreen Use: No Assistive Devices: None Review of Systems Review of Systems: All systems reviewed & are unremarkable except as noted in HPI & below Physical Exam Constitutional: WD/WN, vitals as above Eyes: PERRL, conjunctivae normal, anicteric sclerae ENMT: external ear and nose normal, oropharynx normal Neck: trachea midline, no thyromegaly Respiratory: normal respiratory effort, lungs clear to auscultation Cardiovascular: RRR, no murmur, no edema Vessels: dorsalis pedis pulses present; no JVD Gastrointestinal (Abdomen): normal bowel sounds, soft, nontender, no hepatosplenomegaly Musculoskeletal: Extremities: extremities normal to inspection; no cyanosis and no clubbing Skin: no rashes, warm and dry Neurologic: moves all extremities and awake; no focal motor deficits Psychiatric: A+Ox3, euthymic affect Lymphatic: no lymphedema Results & Data Results & Data ([facility]) Vital Signs (Past 12 Hours) Vital Signs Temp Pulse Pulse Resp BP BP Pulse Ox 02/14/21 13:32 59 L 20 152/80 H 97 02/14/21 12:29 98 02/14/21 11:52 36.6 C 78 18 198/98 H 98 Laboratory Results 02/14/21 02/14/21 02/14/21 Range/Units 14:29 14:29 13:41 WBC (4.8-10.8) K/uL RBC (4.7-6.1) M/uL Hgb (14.0-18.0) g/dL Hct (42-52) % MCV (80-100) fL MCH (25-34) pg MCHC (32-36) g/dL RDW Std Deviation (36.4-46.3) fL RDW Coeff of Lilia (11.5-14.5) % Plt Count (130-400) K/uL MPV (7.4-10.4) fL Immature Gran % (Auto) % Neut % (Auto) % Lymph % (Auto) % [place] % (Auto) % Eos % (Auto) % Baso % (Auto) % Neut # (Auto) (1.4-6.5) K/uL Lymph # (Auto) (1.2-3.4) K/uL [place] # (Auto) (0.11-0.59) K/uL Eos # (Auto) (0-0.5) K/uL Baso # (Auto) (0-0.2) K/uL Immature Gran # (Auto) (0.00-0.02) K/uL PT (9.0-12.0) Seconds INR (0.9-1.1) APTT (21.0-31.0) Seconds PTT Ratio Sodium (136-145) mmol/L Potassium 4.2 (3.5-5.1) mmol/L Chloride (98-107) mmol/L Carbon Dioxide (21-32) mmol/L Anion Gap (3-11) BUN (7-18) mg/dl Creatinine (0.6-1.4) mg/dl Est Cr Clr Drug Dosing ml/min Est GFR ( Amer) ml/min Est GFR (Non-Af Amer) ml/min BUN/Creatinine Ratio (10-20) Glucose (70-99) mg/dl Calcium (8.5-10.1) mg/dl Total Bilirubin (0.2-1) mg/dl AST 16 (15-37) U/L ALT (12-78) U/L Alkaline Phosphatase (45-117) U/L Troponin I (0-0.045) ng/ml Total Protein (6.4-8.2) gm/dl Albumin (3.4-5.0) gm/dl Globulin (2.5-4.0) gm/dl Albumin/Globulin Ratio (0.9-2) Lipase (73-393) U/L COVID-19 Eval Order Covid19 at [facility] SARS-CoV-2 (PCR) Pending 02/14/21 02/14/21 02/14/21 Range/Units 12:16 12:16 12:16 WBC 7.22 (4.8-10.8) K/uL RBC 5.06 (4.7-6.1) M/uL Hgb 14.3 (14.0-18.0) g/dL Hct 43.5 (42-52) % MCV 86.0 (80-100) fL MCH 28.3 (25-34) pg MCHC 32.9 (32-36) g/dL RDW Std Deviation 45.9 (36.4-46.3) fL RDW Coeff of Lilia 14.6 H (11.5-14.5) % Plt Count 157 (130-400) K/uL MPV 9.5 (7.4-10.4) fL Immature Gran % (Auto) 0.1 % Neut % (Auto) 79.1 % Lymph % (Auto) 12.2 % [place] % (Auto) 8.2 % Eos % (Auto) 0.3 % Baso % (Auto) 0.1 % Neut # (Auto) 5.71 (1.4-6.5) K/uL Lymph # (Auto) 0.88 L (1.2-3.4) K/uL [place] # (Auto) 0.59 (0.11-0.59) K/uL Eos # (Auto) 0.02 (0-0.5) K/uL Baso # (Auto) 0.01 (0-0.2) K/uL Immature Gran # (Auto) 0.01 (0.00-0.02) K/uL PT 10.2 (9.0-12.0) Seconds INR 1.0 (0.9-1.1) APTT 26.0 (21.0-31.0) Seconds PTT Ratio 1.0 Sodium 138 (136-145) mmol/L Potassium (3.5-5.1) mmol/L Chloride 108 H (98-107) mmol/L Carbon Dioxide 22 (21-32) mmol/L Anion Gap 7.0 (3-11) BUN 19 H (7-18) mg/dl Creatinine 1.09 (0.6-1.4) mg/dl Est Cr Clr Drug Dosing 71.1 ml/min Est GFR ( Amer) 78.2 ml/min Est GFR (Non-Af Amer) 67.5 ml/min BUN/Creatinine Ratio 17.4 (10-20) Glucose 112 H (70-99) mg/dl Calcium 8.9 (8.5-10.1) mg/dl Total Bilirubin 0.7 (0.2-1) mg/dl AST (15-37) U/L ALT 39 (12-78) U/L Alkaline Phosphatase 93 (45-117) U/L Troponin I < 0.015 (0-0.045) ng/ml Total Protein 7.3 (6.4-8.2) gm/dl Albumin 4.0 (3.4-5.0) gm/dl Globulin 3.3 (2.5-4.0) gm/dl Albumin/Globulin Ratio 1.2 (0.9-2) Lipase 73 (73-393) U/L COVID-19 Eval Order SARS-CoV-2 (PCR) Diagnostic Findings Chest x-ray image personally reviewed by me and agree with the following report: Chest X-Ray 02/14/21 12:23 XR chest 1V portable CLINICAL HISTORY: Atypical chest pain COMPARISON STUDY: 11/17/2020 FINDINGS: There are postsurgical changes of a midline sternotomy. The heart is at the upper limits of normal in size. There is no failure. There is no focal pulmonary consolidation. There are no pleural effusions. Densities at the level left cardiophrenic angle, are likely secondary to a fat pad.[ IMPRESSION: No active disease in the chest. ACT 112: Negative or not required by law. Electronically signed by: Vasyl Callahan M.D. 02/14/2021 12:[address] 02/14/21 12:25 CT head/brain wo con CLINICAL HISTORY: Nausea, lightheadedness, headache, near syncope COMPARISON STUDY: No previous studies for comparison. TECHNIQUE: Axial CT of the brain is performed from the vertex to the skull base. IV contrast was not administered for this examination. A dose lowering technique was utilized adhering to the principles of ALARA. CT DOSE: 614.27 mGy.cm FINDINGS: No intra or extra-axial mass lesions are visualized. There is no CT evidence of acute cortical infarction. There is no evidence of midline shift. There is no acute hemorrhage. No calvarial fractures are visualized. There are minor white matter hypodensities likely on a small vessel basis. There is no evidence of pathologic ventricular dilatation. There is no evidence of acute sinusitis IMPRESSION: No acute intracranial findings ACT 112: Negative or not required by law. Electronically signed by: Vasyl Callahan M.D. 02/14/2021 12:51 PM ECG Additional Comments: ECG on 02/14/2021 at 1201 with sinus arrhythmia, rate 66, left axis deviation, no ischemic changes Code Status & VTE Plan Code Status Full code, but does not desire prolonged life support VTE Prophylaxis Plan VTE Prophylaxis will be ordered: Yes PG Care Time/CCT Total # of Minutes Spent Total Time Spent with Patient: Total time spent is greater than 50% in coordination of care (as documented) at patient's floor/unit and/or counseling p atient: Coding Level of Care Code 62577 OBS Care - Level 3 Diagnoses Near syncope R55 Nausea R11.0 Epigastric pain R10.13 CAD (coronary artery disease) I25.10 Atrial fibrillation I48.91 Hypertension I10 Dyslipidemia E78.5 DVT prophylaxis Z29.9
--- NOTE | 2021-02-14 17:02 | Ultrasound Report ---
US gallbladder CLINICAL HISTORY: epigastric pain,nausea,r/o stones COMPARISON STUDY: No previous studies for comparison. FINDINGS: Pancreas appear normal as visualized. No gallstones are visualized. No hepatic masses are visualized. There is no ductal dilatation. The common bile duct measured 4 mm. There is no right-sided hydronephrosis. There is a 2 cm right parapelvic cyst. IMPRESSION: 1. Ultrasonographically normal gallbladder. No evidence of ductal dilatation. ACT 112: Negative or not required by law. Electronically signed by: Vasyl Callahan M.D. 02/14/2021 5:01 PM
[2021-02-14] MEDS ORDERED: DOCUSATE SODIUM 100 MG CAP PO PRN (17:10)
[2021-02-14] MEDS ORDERED: NITROGLYCERIN SL 0.4 MG/TAB TAB SL PRN (17:10)
[2021-02-14] MEDS ORDERED: ACETAMINOPHEN 325 MG TAB PO PRN (17:10)
[2021-02-14] MEDS ORDERED: ALUMINUM/MAGNESIUM SUSP 30 ML UDC PO PRN (17:10)
[2021-02-14] MEDS ORDERED: POLYETHYLENE (MIRALAX) 17 GM PACK PO PRN (17:10)
[2021-02-14] MEDS ORDERED: ONDANSETRON INJ 2 MG/ML 2 ML VIAL IV PRN (17:10)
[2021-02-14] MEDS ORDERED: ENOXAPARIN INJ 40 MG/0.4 ML SYR SQ SCH (17:10)
[2021-02-14] MEDS: PANTOprazole 40 MG TAB PO SCH (17:14)
--- NOTE | 2021-02-14 20:47 | Cardiology Consultation ---
Date of Consultation February 14, 2021 Assessment & Plan (1) Nausea: Patient is a 70-year-old male status post coronary bypass grafting approximately 3 months ago for crescendo angina and abnormal stress testing with multivessel disease discerned. Postoperative course notable for transient atrial fibrillation and is remained on amiodarone since. Underlying issues include hypertension hyperlipidemia. He presents now noting 2 to 3-day history of intermittent nausea and lightheadedness not specifically exertionally related. Blood pressure is trending higher despite complaints of dizziness Initial evaluation reveals no evidence of myocardial injury or ischemia by enzyme and EKG Plan continue telemetry overnight we will hold/discontinue amiodarone. Will likely require increase Echocardiogram be ordered for a.m. TSH added to a.m. lab We will follow in hospital (2) Epigastric pain: Possible GI source of complaints (3) CAD (coronary artery disease): (4) S/P CABG x 4: (5) Atrial fibrillation: Transient postoperative amiodarone to be discontinued (6) Hypertension: History of Present Illness Reason for Consultation: Nausea, lightheadedness, hypertension approximate 3- month status post coronary bypass grafting Requesting Physician: Dr. Pham Attending Physician: Arelis Pham MD History of Present Illness Patient is a 70-year-old male with ongoing issues which include 1. Coronary artery disease after presenting with atypical symptoms but subsequent abnormal stress echocardiogram on 11/18/2020 2. Multivessel coronary artery disease cardiac cath 11/19/2020, 80% proximal LAD, ramus intermedius subtotal, marginal branch subtotal, diffuse RCA disease 3. Coronary artery bypass surgery, SUAREZ graft LAD, saphenous vein grafts to the ramus intermedius, obtuse marginal, right coronary artery PDA 4. Postoperative atrial fibrillation, transient left pneumothorax 5. Hypertension 6. Hyperlipidemia Patient presents admission having been referred to the ER with complaints of nausea and lightheadedness x2 to 3 days duration. He noted no specific chest pain but did have one profound episode of lightheadedness the day prior to admission while cutting grass. Symptoms resolved and he was able to continue and complete all activities without difficulty. Today complained of symptoms of of nausea and indigestion and abdominal pressure on checking vital signs at home blood pressure was elevated. He noted no symptoms of tachypalpitations or arrhythmias. No fevers chills or unexplained infections. No edema no acute weight loss or gain. Taking current medications as prescribed with new changes recent addition of losartan and ezetimibe to regimen in the last 3 weeks Patient currently without complaints ambulating in the hallway. Initial cardiac enzymes and EKGs without signs of injury or ischemia. Blood pressures do trend towards elevated no arrhythmias on telemetry Allergies Allergy/AdvReac Type Severity Reaction Status Date / Time No Known Allergies Allergy Unverified 02/14/21 12:55 Home Medications Medication Instructions Recorded Confirmed Type amiodarone 200 mg PO QAM 02/14/21 02/14/21 History aspirin 81 mg PO QAM 02/14/21 02/14/21 History atorvastatin 80 mg PO HS 02/14/21 02/14/21 History clopidogrel 75 mg PO QAM 02/14/21 02/14/21 History docusate sodium [Stool Softener] 100 mg PO HS PRN 02/14/21 02/14/21 History ezetimibe [Zetia] 10 mg PO QAM 02/14/21 02/14/21 History losartan [Cozaar] 25 mg PO QAM 02/14/21 02/14/21 History metoprolol succinate [Toprol XL] 25 mg PO QAM 02/14/21 02/14/21 History Patient History Medical History (Updated 02/14/21 @ 16:40 by Arelis Pham MD) Abnormal stress echocardiogram Atrial fibrillation CAD (coronary artery disease) Chest pain due to myocardial ischemia Dyslipidemia Hypertension Postoperative anemia due to acute blood loss Thrombocytopenia Unstable angina Surgical History S/P CABG (coronary artery bypass graft) at [facility] 11/19/20 Family History Mother Myocardial infarction Other Coronary heart disease Denies family history of Ovarian cancer Prostate cancer Diabetes Breast cancer Colorectal cancer Hypertension Social History (Updated 02/14/21 @ 16:37 by Arelis Pham MD) Smoking Status: Former smoker Tobacco Type: Cigarettes and Smokeless Tobacco (Dip or Chew) Age Quit Using Tobacco: 28; Second Hand Exposure: No; Do You Dip or Chew Tobacco: Yes; Hx Alcohol Use: Yes Alcohol type: beer Alcohol Intake Frequency: 2-3 x/Week Hx Substance Use: No Preferred Language: [place]i Communication Ability: Effective [employer] Required: No Beliefs That Will Affect Care: None marital status: Current Living Situation: Spouse current occupational status: retired Feels Safe at Home: Yes caffeine: Yes (coffee) Dental Care, Regularly: Yes Physical Activity Frequency: 5-6 Times per Week Seatbelt Use: always Sunscreen Use: No Assistive Devices: None and Glasses Review of Systems Review of Systems: All systems reviewed & are unremarkable except as noted in HPI & below Physical Exam Constitutional: WD/WN, vitals as above Eyes: PERRL, conjunctivae normal, anicteric sclerae ENMT: external ear and nose normal, oropharynx normal Neck: trachea midline, no thyromegaly Respiratory: normal respiratory effort, lungs clear to auscultation Cardiovascular: Rate/Rhythm: regular rate and regular rhythm Heart Sounds: normal S1 and normal S2; no gallop and no murmur Palpation: normal PMI Vessels: normal carotid upstroke and radial pulses present; no JVD and no carotid bruit Extremities: no edema Chest (Breasts): Additional Comments: Midline chest incision well-healed with minimal tenderness to palpation Gastrointestinal (Abdomen): normal bowel sounds, soft, nontender, no hepatosplenomegaly Musculoskeletal: no cyanosis or clubbing, extremities motor strength 5/5 No palpable cord or Homans' sign, saphenous vein graft harvest sites well-healed Skin: no rashes, warm and dry Neurologic: PERRL, EOMI, accommodation nl, no face palsy, no dysarthria Psychiatric: A+Ox3, euthymic affect Results & Data ([facility]) Vital Signs (Past 12 Hours) Vital Signs Temp Pulse Pulse Resp BP BP Pulse Ox 02/14/21 18:06 66 02/14/21 17:10 36.9 C 73 19 154/81 H 94 02/14/21 16:00 53 L 18 128/75 96 02/14/21 15:31 60 18 187/89 H 98 02/14/21 15:00 55 L 18 147/77 H 96 02/14/21 14:00 58 L 18 144/82 H 96 02/14/21 13:32 59 L 20 152/80 H 97 02/14/21 13:31 58 L 18 152/80 H 97 02/14/21 12:29 98 02/14/21 11:52 36.6 C 78 18 198/98 H 98 Laboratory Results Laboratory Results - last 24 hr 02/14/21 02/14/21 02/14/21 12:16 12:16 12:16 WBC 7.22 RBC 5.06 Hgb 14.3 Hct 43.5 MCV 86.0 MCH 28.3 MCHC 32.9 RDW Std Deviation 45.9 RDW Coeff of Lilia 14.6 H Plt Count 157 MPV 9.5 Immature Gran % (Auto) 0.1 Neut % (Auto) 79.1 Lymph % (Auto) 12.2 [place] % (Auto) 8.2 Eos % (Auto) 0.3 Baso % (Auto) 0.1 Neut # (Auto) 5.71 Lymph # (Auto) 0.88 L [place] # (Auto) 0.59 Eos # (Auto) 0.02 Baso # (Auto) 0.01 Immature Gran # (Auto) 0.01 PT 10.2 INR 1.0 APTT 26.0 PTT Ratio 1.0 Sodium 138 Potassium Chloride 108 H Carbon Dioxide 22 Anion Gap 7.0 BUN 19 H Creatinine 1.09 Est Cr Clr Drug Dosing 71.1 Est GFR ( Amer) 78.2 Est GFR (Non-Af Amer) 67.5 BUN/Creatinine Ratio 17.4 Glucose 112 H Calcium 8.9 Total Bilirubin 0.7 AST ALT 39 Alkaline Phosphatase 93 Troponin I < 0.015 Total Protein 7.3 Albumin 4.0 Globulin 3.3 Albumin/Globulin Ratio 1.2 Lipase 73 COVID-19 Eval Order SARS-CoV-2 (PCR) 02/14/21 02/14/21 02/14/21 13:41 14:29 14:29 WBC RBC Hgb Hct MCV MCH MCHC RDW Std Deviation RDW Coeff of Lilia Plt Count MPV Immature Gran % (Auto) Neut % (Auto) Lymph % (Auto) [place] % (Auto) Eos % (Auto) Baso % (Auto) Neut # (Auto) Lymph # (Auto) [place] # (Auto) Eos # (Auto) Baso # (Auto) Immature Gran # (Auto) PT INR APTT PTT Ratio Sodium Potassium 4.2 Chloride Carbon Dioxide Anion Gap BUN Creatinine Est Cr Clr Drug Dosing Est GFR ( Amer) Est GFR (Non-Af Amer) BUN/Creatinine Ratio Glucose Calcium Total Bilirubin AST 16 ALT Alkaline Phosphatase Troponin I Total Protein Albumin Globulin Albumin/Globulin Ratio Lipase COVID-19 Eval Order Covid19 at [facility] SARS-CoV-2 (PCR) NEGATIVE 02/14/21 18:08 WBC RBC Hgb Hct MCV MCH MCHC RDW Std Deviation RDW Coeff of Lilia Plt Count MPV Immature Gran % (Auto) Neut % (Auto) Lymph % (Auto) [place] % (Auto) Eos % (Auto) Baso % (Auto) Neut # (Auto) Lymph # (Auto) [place] # (Auto) Eos # (Auto) Baso # (Auto) Immature Gran # (Auto) PT INR APTT PTT Ratio Sodium Potassium Chloride Carbon Dioxide Anion Gap BUN Creatinine Est Cr Clr Drug Dosing Est GFR ( Amer) Est GFR (Non-Af Amer) BUN/Creatinine Ratio Glucose Calcium Total Bilirubin AST ALT Alkaline Phosphatase Troponin I < 0.015 Total Protein Albumin Globulin Albumin/Globulin Ratio Lipase COVID-19 Eval Order SARS-CoV-2 (PCR) Diagnostic Findings Carotid duplex 11/20/2020 Impression: Right carotid artery duplex examination indicates evidence of less than 50% stenosis of the internal carotid artery. Left carotid artery duplex examination indicates evidence of less than 50% stenosis of the internal carotid artery. Medications Administered Current Medications Acetaminophen (Acetaminophen 325 Mg Tab) 650 mg PO Q4H PRN PRN Reason: Pain or Fever Stop: 03/16/21 17:09 Al Hydrox/Mg Hydrox/Simethicone (Aluminum/Magnesium Susp 30 Ml Udc) 15 ml PO Q4H PRN PRN Reason: Dyspepsia Stop: 03/16/21 17:09 Amiodarone HCl (Amiodarone 200 Mg Tab) 200 mg PO QAM [facility] Stop: 03/17/21 08:59 Aspirin (Aspirin 81 Mg Ectab) 81 mg PO QAM [facility] Stop: 03/17/21 08:59 Atorvastatin Calcium (Atorvastatin 40 Mg Tab) 80 mg PO HS [facility]HA Stop: 03/16/21 20:59 Clopidogrel Bisulfate (Clopidogrel Bisulfate 75 Mg Tab) 75 mg PO QAM [facility]HA Stop: 03/17/21 08:59 Docusate Sodium (Docusate Sodium 100 Mg Cap) 100 mg PO HS PRN PRN Reason: Constipation Stop: 03/16/21 17:09 Ezetimibe (Ezetimibe 10 Mg Tablet) 10 mg PO QAM [facility] Stop: 03/17/21 08:59 Enoxaparin Sodium (Enoxaparin Inj 40 Mg/0.4 Ml Syr) 40 mg SQ Q24H [facility] Stop: 03/16/21 17:09 Last Admin: 02/14/21 17:13 Dose: Not Given Documented by: Losartan Potassium (Losartan Potassium 25 Mg Tab) [facility] [place] Stop: 03/17/21 08:59 Metoprolol Succinate (Metoprolol Succ 25mg Ext Rel Tab) 25 mg PO [facility] Stop: 03/17/21 08:59 Nitroglycerin (Nitroglycerin Sl 0.4 Mg/Tab Tab) 0.4 mg SL UD PRN PRN Reason: Chest Pain Stop: 03/16/21 17:09 Ondansetron HCl (Ondansetron Inj 2 Mg/Ml 2 Ml Vial) 4 mg IV Q6H PRN PRN Reason: Nausea Stop: 03/16/21 17:09 Pantoprazole Sodium (Pantoprazole 40 Mg Tab) 40 mg PO [facility] Stop: 02/18/21 17:09 Last Admin: 02/14/21 17:14 Dose: Not Given Documented by: Polyethylene Glycol (Polyethylene (Miralax) 17 Gm Pack) 17 gm PO DAILY PRN PRN Reason: Constipation Stop: 03/16/21 17:09 ECG Additional Comments: 14-FEB-2021 12:01:12 [facility]-EDSTAT ROUTINE RETRIEVAL Sinus rhythm with marked sinus arrhythmia Left axis deviation Abnormal ECG When compared with ECG of 19-NOV-2020 10:42, No significant change was found
[2021-02-14] MEDS ORDERED: ATORVASTATIN 40 MG TAB PO SCH (21:00)
[2021-02-15 06:03] LABS: Basophils # (auto) 0.01 K/uL (0-0.2); Basophils % (auto) 0.1 %; Eosinophils # (auto) 0.11 K/uL (0-0.5); Eosinophils % (auto) 1.6 %; Hematocrit (blood only) 41.1 % (42-52); Hemoglobin 13.3 g/dL (14.0-18.0); Immature Granulocytes # (auto) 0.02 K/uL (0.00-0.02); Immature Granulocytes % (auto) 0.3 %; Lymphocytes % (auto) 25.4 %; Mean Corpuscular Hemoglobin 27.9 pg (25-34); Mean Corpuscular Hgb Conc 32.4 g/dL (32-36); Mean Corpuscular Volume 86.2 fL (80-100); Mean Platelet Volume 9.5 fL (7.4-10.4); Monocytes # (auto) 0.72 K/uL (0.11-0.59); Monocytes % (auto) 10.8 %; Neutrophils # (auto) 4.12 K/uL (1.4-6.5); Neutrophils % (auto) 61.8 %; Platelet Count 156 K/uL (130-400); RDW Coefficient of Variation 14.6 % (11.5-14.5); RDW Standard Deviation 46.6 fL (36.4-46.3); Red Blood Count 4.77 M/uL (4.7-6.1); White Blood Count 6.68 K/uL (4.8-10.8)
[2021-02-15 06:26] LABS: BUN Creatinine Ratio 17.3 (10-20); Calcium 8.5 mg/dl (8.5-10.1); Creatinine Clr Calc Pharmacy 79.5 ml/min; Est GFR (African American) 91.2 ml/min; Est GFR (Non-African American) 78.7 ml/min; Potassium 3.9 mmol/L (3.5-5.1)
[2021-02-15 06:36] LABS: Thyroid Stimulating Hormone 6.49 uIu/ml (0.300-4.500)
[2021-02-15 06:49] LABS: T4 Free Thyroxine 1.14 ng/dl (0.8-1.6)
[2021-02-15] MEDS: PANTOprazole 40 MG TAB PO SCH (08:22)
[2021-02-15] MEDS ORDERED: LOSARTAN POTASSIUM 25 MG TAB PO SCH (09:00)
[2021-02-15] MEDS ORDERED: METOPROLOL SUCC 25MG EXT REL TAB PO SCH (09:00)
[2021-02-15] MEDS ORDERED: CLOPIDOGREL BISULFATE 75 MG TAB PO SCH (09:00)
[2021-02-15] MEDS ORDERED: AMIODARONE 200 MG TAB PO SCH (09:00)
[2021-02-15] MEDS ORDERED: ASPIRIN 81 MG ECTAB PO SCH (09:00)
[2021-02-15] MEDS ORDERED: EZETIMIBE 10 MG TABLET PO SCH (09:00)
--- NOTE | 2021-02-15 11:38 | Cardiology Progress Note ---
Date of Service February 15, 2021 Assessment & Plan (1) Nausea: Patient is a 70-year-old male status post coronary bypass grafting approximately 3 months ago for crescendo angina and abnormal stress testing with multivessel disease discerned. Postoperative course notable for transient atrial fibrillation and is remained on amiodarone since. Underlying issues include hypertension hyperlipidemia. He presents now noting 2 to 3-day history of intermittent nausea and lightheadedness not specifically exertionally related. Blood pressure is trending higher despite complaints of dizziness Initial evaluation reveals no evidence of myocardial injury or ischemia by enzyme and EKG Echocardiogram without concerning findings Plan: Telemetry overnight no arrhythmias but relative bradycardia. As per prior we will discontinue amiodarone. Recommend increasing losartan to 25 mg twice per day 2 days post discharge Patient to report any new symptoms or complaints post discharge. Use discretion when working with activities and heat exposure Follow-up cardiology 3 to 4 weeks time (2) Epigastric pain: Possible GI source of complaints (3) CAD (coronary artery disease): (4) S/P CABG x 4: (5) Atrial fibrillation: Transient postoperative amiodarone to be discontinued (6) Hypertension: Admission and Anticipated Discharge Date Admission Date: February 14, 2021 Subjective Patient was seen and examined, chart, medications, telemetry reviewed. No further complaints or issues overnight. No chest pains or discomfort. No arrhythmias on telemetry. No fevers chills or unexplained infections. Patient says I feel like "just overdid it" Review of Systems Review of Systems: All systems reviewed & are unremarkable except as noted in HPI & below Physical Exam Constitutional: WD/WN, vitals as above Eyes: PERRL, conjunctivae normal, anicteric sclerae ENMT: external ear and nose normal, oropharynx normal Neck: trachea midline, no thyromegaly Respiratory: normal respiratory effort, lungs clear to auscultation Cardiovascular: Rate/Rhythm: regular rate and regular rhythm Heart Sounds: normal S1 and normal S2; no gallop and no murmur Palpation: normal PMI Vessels: normal carotid upstroke and radial pulses present; no JVD and no carotid bruit Extremities: no edema Chest (Breasts): Additional Comments: Midline incision healing well Gastrointestinal (Abdomen): normal bowel sounds, soft, nontender, no hepatosplenomegaly Musculoskeletal: no cyanosis or clubbing, extremities motor strength 5/5 Skin: no rashes, warm and dry Neurologic: PERRL, EOMI, accommodation nl, no face palsy, no dysarthria Psychiatric: A+Ox3, euthymic affect Results & Data ([facility]) Vital Signs (Past 12 Hours) Vital Signs Temp Pulse Resp BP Pulse Ox 02/15/21 08:04 36.8 C 55 L 17 156/85 H 95 02/15/21 03:43 36.7 C 63 18 134/81 95 02/14/21 23:40 36.8 C 61 18 155/80 H 96 Laboratory Results Laboratory Results - last 24 hr 02/14/21 02/14/21 02/14/21 12:16 12:16 12:16 WBC 7.22 RBC 5.06 Hgb 14.3 Hct 43.5 MCV 86.0 MCH 28.3 MCHC 32.9 RDW Std Deviation 45.9 RDW Coeff of Lilia 14.6 H Plt Count 157 MPV 9.5 Immature Gran % (Auto) 0.1 Neut % (Auto) 79.1 Lymph % (Auto) 12.2 [place] % (Auto) 8.2 Eos % (Auto) 0.3 Baso % (Auto) 0.1 Neut # (Auto) 5.71 Lymph # (Auto) 0.88 L [place] # (Auto) 0.59 Eos # (Auto) 0.02 Baso # (Auto) 0.01 Immature Gran # (Auto) 0.01 PT 10.2 INR 1.0 APTT 26.0 PTT Ratio 1.0 Sodium 138 Potassium Chloride 108 H Carbon Dioxide 22 Anion Gap 7.0 BUN 19 H Creatinine 1.09 Est Cr Clr Drug Dosing 71.1 Est GFR ( Amer) 78.2 Est GFR (Non-Af Amer) 67.5 BUN/Creatinine Ratio 17.4 Glucose 112 H Calcium 8.9 Total Bilirubin 0.7 AST ALT 39 Alkaline Phosphatase 93 Troponin I < 0.015 Total Protein 7.3 Albumin 4.0 Globulin 3.3 Albumin/Globulin Ratio 1.2 Lipase 73 TSH Free T4 COVID-19 Eval Order SARS-CoV-2 (PCR) 02/14/21 02/14/21 02/14/21 13:41 14:29 14:29 WBC RBC Hgb Hct MCV MCH MCHC RDW Std Deviation RDW Coeff of Lilia Plt Count MPV Immature Gran % (Auto) Neut % (Auto) Lymph % (Auto) [place] % (Auto) Eos % (Auto) Baso % (Auto) Neut # (Auto) Lymph # (Auto) [place] # (Auto) Eos # (Auto) Baso # (Auto) Immature Gran # (Auto) PT INR APTT PTT Ratio Sodium Potassium 4.2 Chloride Carbon Dioxide Anion Gap BUN Creatinine Est Cr Clr Drug Dosing Est GFR ( Amer) Est GFR (Non-Af Amer) BUN/Creatinine Ratio Glucose Calcium Total Bilirubin AST 16 ALT Alkaline Phosphatase Troponin I Total Protein Albumin Globulin Albumin/Globulin Ratio Lipase TSH Free T4 COVID-19 Eval Order Covid19 at [facility] SARS-CoV-2 (PCR) NEGATIVE 02/14/21 02/15/21 02/15/21 18:08 00:18 05:18 WBC 6.68 RBC 4.77 Hgb 13.3 L Hct 41.1 L MCV 86.2 MCH 27.9 MCHC 32.4 RDW Std Deviation 46.6 H RDW Coeff of Lilia 14.6 H Plt Count 156 MPV 9.5 Immature Gran % (Auto) 0.3 Neut % (Auto) 61.8 Lymph % (Auto) 25.4 [place] % (Auto) 10.8 Eos % (Auto) 1.6 Baso % (Auto) 0.1 Neut # (Auto) 4.12 Lymph # (Auto) 1.70 [place] # (Auto) 0.72 H Eos # (Auto) 0.11 Baso # (Auto) 0.01 Immature Gran # (Auto) 0.02 PT INR APTT PTT Ratio Sodium Potassium Chloride Carbon Dioxide Anion Gap BUN Creatinine Est Cr Clr Drug Dosing Est GFR ( Amer) Est GFR (Non-Af Amer) BUN/Creatinine Ratio Glucose Calcium Total Bilirubin AST ALT Alkaline Phosphatase Troponin I < 0.015 < 0.015 Total Protein Albumin Globulin Albumin/Globulin Ratio Lipase TSH Free T4 COVID-19 Eval Order SARS-CoV-2 (PCR) 02/15/21 05:18 WBC RBC Hgb Hct MCV MCH MCHC RDW Std Deviation RDW Coeff of Lilia Plt Count MPV Immature Gran % (Auto) Neut % (Auto) Lymph % (Auto) [place] % (Auto) Eos % (Auto) Baso % (Auto) Neut # (Auto) Lymph # (Auto) [place] # (Auto) Eos # (Auto) Baso # (Auto) Immature Gran # (Auto) PT INR APTT PTT Ratio Sodium 141 Potassium 3.9 Chloride 111 H Carbon Dioxide 27 Anion Gap 4.0 BUN 17 Creatinine 0.96 Est Cr Clr Drug Dosing 79.5 Est GFR ( Amer) 91.2 Est GFR (Non-Af Amer) 78.7 BUN/Creatinine Ratio 17.3 Glucose 88 Calcium 8.5 Total Bilirubin AST ALT Alkaline Phosphatase Troponin I Total Protein Albumin Globulin Albumin/Globulin Ratio Lipase TSH 6.490 H Free T4 1.14 COVID-19 Eval Order SARS-CoV-2 (PCR) Diagnostic Findings Echocardiogram today reveals mild dyssynergic septal contraction consistent with postoperative state with otherwise normal LV function. No significant valvular disease or pericardial effusion
--- NOTE | 2021-02-15 11:50 | Discharge Summary ---
Date of Service February 15, 2021 Admission HPI Per Admitting Provider This patient is a 70-year-old male with a history of CAD status post four-vessel CABG with SUAREZ to LAD, SVG to ramus, OM, PDA on 11/20/2020 with postoperative course complicated by paroxysmal atrial fibrillation and left sided postsurgical pneumothorax, HTN, dyslipidemia, who presents to the ER with lightheadedness as well as episodes of nausea and epigastric discomfort. He feels he overdid it with activity yesterday as he mowed the grass with a riding lawnmower after which he felt "uneasy" and lightheaded with minimal exertion. Started having episodes of epigastric discomfort which he describes was not a pain but more just nausea that radiated up into his chest, lasting 15 seconds at a time. But denies any back pain, no black or bloody bowel movements, no other abdominal pain. No nausea or vomiting. He reports that changes in position did not make it come on or make it go away and that he did not take anything for it. He has never had any GI issues in the past and has never had an EGD for any reason. He has been taking aspirin daily since his CABG 3 months ago. Denies shortness of breath, fevers, or cough. He reports having intermittent headache also since the CABG but did not have any yesterday.he denies any chest pain. He called his auto tester this morning with his symptoms who recommended he come to the ER for an evaluation. Apparently, his metoprolol was recently changed on January 21 from metoprolol tartrate 12.5 mg p.o. twice daily to metoprolol succinate 25 mg once daily. He also had losartan 25 mg daily added on at that same visit with cardiology. In the ER, CBC and CMP were normal, troponin was negative, LFTs and lipase were normal. CT the head was negative for acute findings, chest x-ray negative for acute findings but shows postsurgical changes of midline sternotomy and density at the level of the left cardiophrenic angle secondary to fat pad. ECG with sinus rhythm with sinus arrhythmia, left axis deviation, no acute ischemic changes. He was mildly hypertensive, had sinus bradycardia, and vital signs were otherwise normal. He will be admitted for further work-up for cardiac evaluation and further work- up for his lightheadedness and nausea. Principal Diagnosis Presyncope, hypertension Discharge Exam Constitutional WD/WN, vitals as above Neck trachea midline, no thyromegaly Respiratory normal respiratory effort, lungs clear to auscultation Cardiovascular RRR, no murmur, no edema Gastrointestinal (Abdomen) normal bowel sounds, soft, nontender, no hepatosplenomegaly Musculoskeletal no cyanosis or clubbing, extremities motor strength 5/5 Skin no rashes, warm and dry Neurologic patellar DTR's 2+ bilat, sensation intact and PERRL, EOMI, accommodation nl, no face palsy, no dysarthria Psychiatric A+Ox3, euthymic affect Lymphatic no cervical or axillary lymphadenopathy Discharge Data Allergies Allergy/AdvReac Type Severity Reaction Status Date / Time No Known Allergies Allergy Unverified 02/14/21 12:55 Consultations 02/14/21 14:23 ED Decision to Admit Stat 02/14/21 15:46 Consult Cardiology Routine Ordered Studies 02/14/21 12:25 CT head/brain wo con Stat 02/14/21 15:46 US gallbladder Stat Hospital Course (1) Near syncope: Presents with 12 hours of intermittent brief episodes of nausea without vomiting, and on sensation of queasiness in the epigastric region radiating up through the chest. This is also associated with lightheadedness but no syncope. No associated palpitations or chest pain, no abdominal pain, no evidence of GI bleeding. ECG with sinus bradycardia. Recent change to metoprolol succinate but is the same dose as he was taking of the tartrate. He is mildly hypertensive here and does not seem volume depleted troponin negative, no orthostatic changes appreciate cardiology consult will stop Amiodarone as planned will increase Losartan to 25mg BID, continue other BP medications follow up with PCP for BP check stay well hydrated, follow low sodium diet (2) Nausea: Could be gastritis secondary to aspirin use although no evidence of GI bleeding and hemoglobin is normal symptoms resolved, feels well, wants to go home (3) Epigastric pain: Not as early pain, but with queasy sensation and nausea as above normal RUQ US (4) CAD (coronary artery disease): Status post CABG Continue aspirin, Plavix, atorvastatin, Zetia, metoprolol, increase losartan (5) Atrial fibrillation: With a history of paroxysmal atrial fibrillation postoperatively from his CABG Was supposed to have a Zio patch placed as per cardiology notes Amiodarone is to be discontinued on 02/19, will stop now per cardiology He is not on anticoagulation at this time (6) Hypertension: Blood pressure is elevated here increase losartan to 25mg BID, Toprol-XL (7) Dyslipidemia: Continue statin, Zetia (8) DVT prophylaxis: Lovenox SQ Disposition bring in on observation to telemetry unit, can go home today Total Time Total Time Spent Total Time Spent (In Minutes): 24 Discharge Plan Discharge Items Patient Disposition: Home - Self-Care Reason For Visit: PRESYNCOPE,NAUSEA,R/O ACS Discharge Diagnosis: Presyncope Nausea Hypertension Condition on Discharge: Good Goals: follow low sodium diet, take blood pressure medications as prescribed stop taking Amiodarone Activity: Resume your previous activity Non-emergency contact: Primary Care Provider Call non-emergency contact if: you have any medication questions and your symptoms worsen Follow-up/Referrals: Lita Pierre CRNP [Primary Care Provider] - (one week, blood pressure check) Diet: Heart Healthy Addtl Attending Provider Instructions: Medications: stop amiodarone, will increase Losartan to twice a day, new prescription sent to pharmacy No evidence of acute coronary syndrome take medications as prescribed follow up with PCP for blood pressure check Pending Studies at Discharge: No Stand-Alone Forms: My Withings, Smoking Cessation Medications and DC Order Prescriptions: New losartan 25 mg Tablet 25 mg PO BID 30 Days Qty: 60 RF: 3 Continued docusate sodium [Stool Softener] 100 mg Capsule 100 mg PO HS PRN (Reason: Constipation) RF: 0 metoprolol succinate [Toprol XL] 25 mg tablet extended release 24 hr 25 mg PO QAM RF: 0 ezetimibe [Zetia] 10 mg tablet 10 mg PO QAM RF: 0 atorvastatin 80 mg tablet 80 mg PO HS RF: 0 clopidogrel 75 mg tablet 75 mg PO QAM RF: 0 aspirin 81 mg tablet,chewable 81 mg PO QAM RF: 0 Discontinued losartan [Cozaar] 25 mg tablet 25 mg PO QAM RF: 0 amiodarone 200 mg tablet 200 mg PO QAM RF: 0 Discharge Orders: Discharge Order (Routine); Ordered 02/15/21 Ordered By: Khai Strange Admission Data Admit Date/Time: 02/14/21 15:46 Attending Provider: Khai Strange Admit Provider: Arelis Pham Primary Care Provider: Lita Pierre Other Providers: Broderick Vinson ; Arelis Pham Other Interventions: Discharge Summary Assessment (RN) Last Done: 02/15/21 11:53 Coding Level of Care Code 60250 OBS Care - Discharge Diagnoses Near syncope R55 Nausea R11.0 Epigastric pain R10.13 CAD (coronary artery disease) I25.10 Atrial fibrillation I48.91 Hypertension I10 Dyslipidemia E78.5 DVT prophylaxis Z29.9
--- NOTE | 2021-02-16 13:34 | Electrocardiogram Report ---
Test Reason : Blood Pressure : / mmHG Vent. Rate : 066 BPM Atrial Rate : 066 BPM P-R Int : 152 ms QRS Dur : 068 ms QT Int : 408 ms P-R-T Axes : 077 -32 045 degrees QTc Int : 427 ms Sinus rhythm with marked sinus arrhythmia Left axis deviation Abnormal ECG When compared with ECG of 19-NOV-2020 10:42, No significant change was found Confirmed by Wayne Ivey ([id number]) on 02/16/2021 1:34:39 PM Referred By: REFERRED SELF Confirmed By:Wayne Ivey
--- NOTE | 2021-02-16 14:06 | Electrocardiogram Report ---
Test Reason : Blood Pressure : / mmHG Vent. Rate : 057 BPM Atrial Rate : 057 BPM P-R Int : 166 ms QRS Dur : 074 ms QT Int : 452 ms P-R-T Axes : 072 -47 -14 degrees QTc Int : 439 ms Sinus bradycardia with sinus arrhythmia Left axis deviation Abnormal ECG When compared with ECG of 14-FEB-2021 12:01, (unconfirmed) Nonspecific T wave abnormality, worse in Inferior leads Confirmed by Wayne Ivey ([id number] on 02/16/2021 2:05:38 PM Referred By: REFERRED SELF Confirmed By:Wayne Ivey
== END 2021-02-15 12:41 | disposition home or self-care (01) ==
LOC: 2S 11:49 → ED 11:49 → SUATTDRO 15:46 → 2S 16:30